=== PATIENT | female | born 1945 | race Caucasian/White ===

== ENCOUNTER → 2017-11-20 | Outpatient (CLI) | payer MEDICARE, OTHER ==
[~2017-11-20] MED LIST: BENZ200C15 PO; BISA-229 PO; BLOOD PRESSURE; CEPH-13 PO; CHOL500050 PO; CITA-139 PO; CYCL-332 PO; DOCU-416 PO; ESC10 PO; ESCI10TA8 PO; ESCI20TA38 PO; FERR-53 PO; FLU45SYR25 IM ONLY; FLU60SYR30 IM ONLY; LACT1CAP6 PO; LIS20 PO; LOR5 PO; LOSA50TA72 PO; NITR-1 PO; OMEP-125 PO; OMEP40CA48 PO; PAR20 PO; PIRF801T; PNEI IJ; PNEU0.5D3 IM; PRED20TA6 PO; TRIA15CR40 TP
== END ==
LOC: LAB 11:31
PROVIDERS: ATTEND Internal Medicine
DX: J84.112 Idiopathic pulmonary fibrosis (principal)
CPT/HCPCS: 36415; 82040; 82247; 82248; 84075; 84155; 84450; 84460

== ENCOUNTER → 2017-12-01 | Outpatient (CLI) | payer MEDICARE, OTHER ==
[2017-12-01 15:59] LABS: PLATELET COUNT, AUTOMATED 151 K/uL (150-450)
== END ==
LOC: LAB 15:35
PROVIDERS: ATTEND Nurse Practitioner Family
DX: K29.70 Gastritis, unspecified, without bleeding (principal); D50.9 Iron deficiency anemia, unspecified; J84.9 Interstitial pulmonary disease, unspecified; Z79.899 Other long term (current) drug therapy
CPT/HCPCS: 36415; 82040; 82247; 82310; 82374; 82435; 82565; 82947; 84075; 84132; 84155; 84295; 84450; 84460; 84520; 85025

== ENCOUNTER → 2017-12-03 | Outpatient (CLI) | payer MEDICARE, OTHER | LOC: LAB 14:48 | PROVIDERS: ATTEND Nurse Practitioner Family | DX: D50.9 Iron deficiency anemia, unspecified (principal); D53.9 Nutritional anemia, unspecified | CPT/HCPCS: 36415; 82607; 82728; 82746; 83540; 83550 ==

== ENCOUNTER → 2018-01-27 | Outpatient (CLI) | payer MEDICARE, OTHER ==
[~2018-01-27] MED LIST changes: +ALPR-429 PO
[2018-01-27 17:02] LABS: PLATELET COUNT, AUTOMATED 210 K/uL (150-450)
== END ==
LOC: LAB 16:40
PROVIDERS: ATTEND Nurse Practitioner Primary Care
DX: M54.5 Low back pain (principal)
CPT/HCPCS: 36415; 81001; 82040; 82247; 82310; 82374; 82435; 82565; 82947; 84075; 84132; 84155; 84295; 84450; 84460; 84520; 85025

== ENCOUNTER → 2018-01-29 | Outpatient (CLI) | payer MEDICARE, OTHER ==
--- NOTE | 2018-01-29 19:45 | RADIOLOGY IMAGING REPORT ---
FACILITY: [facility] PATIENT NAME: Yolette Munson : 1945 MR: [id number] V: [id number] EXAM DATE: ORDERING PHYSICIAN: GLORIA MOSES TECHNOLOGIST: Location: [facility] [place] Patient: Yolette Munson : 1945 Visit/Account:[id number] Date of Sevice: 01/29/2018 Lumbar spine with obliques, 4 views. HISTORY: Low back pain. COMPARISON: Lateral chest radiograph 06/04/2017. The bones are osteopenic. A mild wedge deformity is present in the T11 vertebral body, new compared t o previous. Small endplate osteophytes, endplate sclerosis, and Schmorl's node, vacuum phenomenon, an d moderate loss of disc height are present at T12-L1. Small endplate osteophytes and mild loss of dis c height are present at all other lumbar and lower thoracic levels. The abdominal aorta and visceral arteries are calcified. The posterior elements are unremarkable. No pars defects are identified. Mild sclerosis is present along the sacroiliac joints. IMPRESSION: Osteopenia. Mild T11 compression fracture, new since 06/04/2017. Mild to moderate multilevel degenerative disc disease. Atherosclerosis. Report Dictated By: John Dunn MD at 01/29/2018 7:36 PM Report E-Signed By: John Dunn MD at 01/29/2018 7:41 PM WSN:[id number]
== END ==
LOC: RAD 15:23
PROVIDERS: ATTEND Nurse Practitioner Primary Care
DX: M54.5 Low back pain (principal); M48.54XA Collapsed vertebra, not elsewhere classified, thoracic region, initial encounter for fracture; M19.90 Unspecified osteoarthritis, unspecified site; I25.10 Atherosclerotic heart disease of native coronary artery without angina pectoris
CPT/HCPCS: 72120

== ENCOUNTER → 2018-02-02 | Outpatient (CLI) | payer MEDICARE, OTHER ==
--- NOTE | 2018-02-02 13:52 | RADIOLOGY IMAGING REPORT ---
FACILITY: [facility] PATIENT NAME: Yolette Munson : 1945 MR: [id number] V: [id number] EXAM DATE: ORDERING PHYSICIAN: CHANTE BORJA TECHNOLOGIST: Location: [facility] [place] Patient: Yolette Munson : 1945 Visit/Account:[id number] Date of Sevice: 02/02/2018 BONE MINERAL DENSITY HISTORY: Osteopenia COMPARISON: DEXA 04/24/2016 FINDINGS: LUMBAR SPINE: Bone mineral density (BMD) measured from L1-L4 correlates with a Z-score of -1.6 and a T-score of -3. 3 which is osteoporosis as defined by the World Health Organization. The corresponding risk of fract ure in the lumbar spine is 9X compared with a young adult reference population. This value has decre ased by 15.3% since the prior study. More than 5% change is considered significant. HIP: Bone mineral density (BMD) measured in the left total hip region correlates with a Z-score of -1.5 an d a T-score of -3.2 which is osteoporosis as defined by the World Health Organization. The correspon ding risk of fracture in the hip is 9X compared with a young adult reference population. This value has decreased by 17.7% since the prior study. More than 5% change is considered significant. Bone mineral density (BMD) measured in the left Femoral Neck region measures 0.610 g/cm2. IMPRESSION: 1. Lumbar spine: Osteoporosis. There has been significant decrease in the bone mineral density sin ce the previous exam. 2. Left Total Hip: Osteoporosis. There has been significant decrease in the bone mineral density s callie the previous exam. 3. Left Femoral Neck: Bone Mineral Density is 0.610 g/cm2. The next DEXA scan of this patient should include the following sites: L1-L4, left hip. FRAX? WHO Fracture Risk Assessment Tool link: <http://www.shef.ac.uk/FRAX/tool.jsp?locationValue=9> PLEASE NOTE: 1) The World Health Organization defines low BMD as follows: T-score Normal > -1 Osteopenia < -1 and > -2.5 Osteoporosis < -2.5 without fractures Established osteoporosis < -2.5 with fractures 2) In general, you may wish to consider: Diagnosis Treatment Follow-up DEXA Normal BMD Prevention 2-3 years Osteopenia Prevention/therapy 1-2 years Osteoporosis Therapy Yearly 3) Fracture risk estimated from the T-score is more accurate for vertebral fractures (often spontane ous) than for hip fractures. Report Dictated By: Danny Galindo DO at 02/02/2018 1:47 PM Report E-Signed By: Danny Galindo DO at 02/02/2018 1:49 PM WSN:[email or web address]
== END ==
LOC: RAD 06:54
PROVIDERS: ATTEND Emergency Medicine
DX: Z13.820 Encounter for screening for osteoporosis (principal); M81.0 Age-related osteoporosis without current pathological fracture; M85.80 Other specified disorders of bone density and structure, unspecified site; M48.54XA Collapsed vertebra, not elsewhere classified, thoracic region, initial encounter for fracture
CPT/HCPCS: 36415; 77080; 82306; 82310; 83970

== ENCOUNTER → 2018-02-09 | Outpatient (CLI) | payer MEDICARE, OTHER ==
--- NOTE | 2018-02-09 09:45 | RADIOLOGY IMAGING REPORT ---
FACILITY: [facility] PATIENT NAME: Yolette Munson : 1945 MR: [id number] V: [id number] EXAM DATE: ORDERING PHYSICIAN: CHANTE BORJA TECHNOLOGIST: Location: [facility] [place] Patient: Yolette Munson : 1945 Visit/Account:[id number] Date of Sevice: 02/09/2018 EXAMINATION: Limited abdomen ultrasound HISTORY: Elevated alkaline phosphatase COMPARISON: CT abdomen and pelvis 04/25/2016 FINDINGS: Pancreas: Pancreas head and body have uniform echogenicity and defined margins. Pancreas tail is ob scured by bowel gas. Liver: Liver visualization is limited due to subcostal location and bowel gas. The liver is small, with the right lobe measuring 8 cm length. Liver margins are smooth. The portal vein is patent with normal directional blood flow by duplex Doppler ultrasound. Bile ducts: Intrahepatic and extrahepatic bile ducts are normal caliber. Common bile duct measures 3 mm diameter in the carolina hepatis. Gallbladder:Gallbladder is normal size and wall thickness. Gallbladder contains no stones or sludge. Right Kidneys:Normal size with preserved parenchymal thickness and appropriate echogenicity. Right ki dney measures 9 cm length. Abdominal aorta and IVC:Abdominal aorta and IVC are normal caliber. Both are patent. Ascites: None IMPRESSION: 1. Small liver with limited ultrasound for stability due to subcostal location of the liver and ponec l gas. For this patient, the liver would be best assessed by CT or MR abdomen with IV contrast. 2. Negative study for gallstones and bile duct obstruction. Report Dictated By: Kadie Bar MD at 02/09/2018 9:36 AM Report E-Signed By: Kadie Bar MD at 02/09/2018 9:40 AM WSN:[id number]
== END ==
LOC: US 02:28
PROVIDERS: ATTEND Emergency Medicine
DX: R74.8 Abnormal levels of other serum enzymes (principal)
CPT/HCPCS: 36415; 76705; 82977

== ENCOUNTER → 2018-02-12 | Outpatient (CLI) | payer MEDICARE, OTHER ==
[~2018-02-12] MED LIST changes: +CALC3.7S10 NS; +IOPAMIDOL 76% 75 ML INFUS BTL 75 ML ONE
--- NOTE | 2018-02-12 13:28 | RADIOLOGY IMAGING REPORT ---
FACILITY: [facility] - [place] PATIENT NAME: Yolette Munson : 1945 MR: [id number] V: [id number] EXAM DATE: ORDERING PHYSICIAN: NELSY LAMBERT TECHNOLOGIST: Location: [facility] [place] Patient: Yolette Munson : 1945 Visit/Account:[id number] Date of Sevice: 02/12/2018 ABDOMEN/PELVIS W/WO CONTRAST HISTORY: elevated alk phos - not able to see on US TECHNIQUE: Axial images acquired through the abdomen/pelvis both with and without IV contrast.. Jose J nal and sagittal reformatting also performed. Dose Lowering Technique One of the following dose optimization techniques was utilized in the performance of this exam: Autom ated exposure control; adjustment of the mA and/or kV according to the patient's size; or use of an i terative reconstruction technique. Specific details can be referenced in the facility's radiology C T exam operational policy. CONTRAST: 75 mL Isovue-370 COMPARISON: April 25, 2016 FINDINGS: Visualized lung bases: Severe interstitial septal thickening again seen throughout the lower lung fi elds with peribronchial thickening. These changes have further advanced when compared to the prior s tudy there are moderate coronary artery vascular calcifications.. There is a 2.3 x 1.3 x 2 cm right infrahilar mass suspicious for lymph node not appreciated on the prior study. There also appears to be a 1.2 cm left hilar lymph node Hepatobiliary: Negative. Spleen: Negative. Adrenals: Negative. Pancreas: Negative. Kidneys ureters and bladder: Negative. Genitalia: Atrophic uterus. The endometrium appears thickened at 1.3 cm GI: There is a small hiatal hernia Vessels/spaces/nodes: There are mild to moderate vascular calcifications seen throughout the abdomin al aorta and branch vessels Bones/soft tissues: There are moderate spondylotic changes at T12-L1. There is a mild compression f racture of T11 not present previously there is a mixed sclerotic lucent region in the left iliac bone that appears stable Additional findings: None pertinent. IMPRESSION: There are severe interstitial and septal thickening throughout the lower lung grvoe with peribronchi al thickening. These changes have advanced when compared to the prior study. Incompletely imaged is what appears to be a right infrahilar mass and a left hilar lymph node. CT of the chest with contra st may be helpful for further evaluation . Atrophic uterus. Endometrium appears thickened for postmenopausal woman. Pelvic ultrasound recommen ded Small hiatal hernia. There is a mild compression fracture of T11 not present previously Report Dictated By: Vernell Lloyd MD at 02/12/2018 12:49 PM Report E-Signed By: Vernell Lloyd MD at 02/12/2018 1:22 PM WSN:[email or web address]
== END ==
LOC: CT 07:08
PROVIDERS: ATTEND Nurse Practitioner Family
DX: I25.10 Atherosclerotic heart disease of native coronary artery without angina pectoris (principal); R91.8 Other nonspecific abnormal finding of lung field; K44.9 Diaphragmatic hernia without obstruction or gangrene
CPT/HCPCS: 74178; Q9967

== ENCOUNTER 2018-02-19 13:11 | Outpatient (RCR) | payer MEDICARE, OTHER ==
[2017-12-11 14:03] VITALS: BP 119/76
[2017-12-11 15:28] LABS: PLATELET COUNT, AUTOMATED 255 K/uL (150-450)
--- NOTE | 2017-12-11 21:39 | ONCOLOGY CONSULTATION ---
EVENT DATE: December 11, 2017 REFERRING PHYSICIAN ERIC BardalesP-[place] REASON FOR THE CONSULTATION Evaluation and management of macrocytic anemia. HISTORY OF PRESENT ILLNESS Patient is a 72-year-old female who was diagnosed recently with iron deficiency anemia and the patient started iron supplementation, and she had actually GI workup done on July 22, 2017, and her duodenal biopsy showed diagnostic abnormality. Stomach biopsy showed mild chronic gastritis, negative for H. pylori, and ascending colon biopsy showed hyperplastic polyp, and rectal biopsy showed also hyperplastic polyp. Patient does not like the iron pills because it causes some GI disturbances. Her CBC showed white count 5.7, hemoglobin 9.7 , hematocrit 29, platelets 151,000 and MCV was high at 97.3. Her ESR is 45. She had a serum folate that was normal at 15.9, TSH 1.01, vitamin B12 was 353, ferritin was 14, TIBC 262, serum iron 43, creatinine was 0.7. PAST MEDICAL HISTORY 1. Idiopathic pulmonary fibrosis. 2. Psoriasis. 3. Anemia. PAST SURGICAL HISTORY Surgery for extraction of renal stones. FAMILY HISTORY Brother had lung cancer, paternal grandmother had colon cancer. SOCIAL HISTORY Patient is a with four children. She is a retired florist designer. She drinks alcohol rarely. Denies any abuse of tobacco or illicit drugs. CURRENT MEDICATIONS 1. Lexapro 20 mg daily. 2. Colace 100 mg twice daily. 3. Omeprazole 40 mg twice daily. ALLERGIES SULFA WHICH CAUSES SKIN RASH. REVIEW OF SYSTEMS CONSTITUTIONAL: She has some sweating sometimes. HEENT: Ears: No tinnitus or hearing problem. Nose: No nasal discharge or epistaxis. Throat: No sore throat or mouth ulcers. Eyes: No diplopia or visual changes. RESPIRATORY: She has cough and shortness of breath. CARDIOVASCULAR: No chest pain, orthopnea, or paroxysmal nocturnal dyspnea (PND) . No edema. No palpitations. GASTROINTESTINAL: She has occasional nausea and vomiting and alternating diarrhea and constipation. GENITOURINARY: No hematuria or dysuria. MUSCULOSKELETAL: No pain in the muscles, joints or bones. NEUROLOGICAL: No tingling or numbness in the hands or feet. No headaches or convulsions. HEMATOLOGIC/LYMPHATIC: She bruises easily. She is weak, tired and fatigued. SKIN: No skin rash or lumps. PSYCHIATRIC: No anxiety or depression. PHYSICAL EXAMINATION GENERAL: Looks stable. Well-developed, well-nourished, and in no acute distress. VITAL SIGNS: Blood pressure 119/76, pulse 94 per minute, respirations 16 per minute, temperature 97.2, pulse ox 93.1% on 3L oxygen. HEENT: Head: Atraumatic. No sinus tenderness to palpation. Eyes: No icterus or conjunctivitis. Mouth and throat: No oral thrush or mucositis. NECK: Supple. No cervical or supraclavicular lymphadenopathy. LUNGS: Clear to auscultation and percussion bilaterally. HEART: Regular rate and rhythm. No gallops, murmurs, clicks or rubs. ABDOMEN: Soft and lax. No tenderness. No hepatosplenomegaly. No masses. EXTREMITIES: No cyanosis, clubbing or edema. LYMPHATICS: No peripheral lymphadenopathy. NEUROLOGICAL: Conscious, alert and oriented times three. No focal motor or sensory deficits. PSYCHIATRIC: Mood and affect appear normal. SKIN: No skin rash, bruise or purpuric eruption. ASSESSMENT Macrocytic anemia in a patient with history of iron deficiency anemia on iron pills and gastrointestinal workup did not show a bleeding source. Her stomach biopsy showed mild chronic gastritis, while the duodenal biopsy was no diagnostic abnormality. She has two polyps from the rectum and ascending colon turned out to be hyperplastic polyp. Her GI workup was done on July 22, 2017. Given that her anemia currently is macrocytic I do not think iron deficiency is only the reason for her anemia and there may be other reasons for that. Her ferritin is 14 and for this reason I am planning to check her soluble transferrin receptor assay to see if she is still iron deficient or not. If that soluble transferrin receptor assay comes back high then I will treat her with Injectafer 750 mg intravenous infusion weekly for two weeks, as the patient cannot tolerate the oral iron pills. If the other tests which I will request including methylmalonic acid assay, red cell folate, serum protein electrophoresis, CBC, retic count and haptoglobin level all come back normal, then I will proceed with bone marrow aspiration biopsy to rule out the possibility of myelodysplastic syndrome. I explained that to the patient. Patient is agreeable with the plan of management. If the patient will prove to have B12 or folic acid deficiency then we will treat her for two months and we will repeat the testing after that, and if her anemia will not correct while her deficiency will correct then we will consider bone marrow aspiration biopsy at that time. PLAN 1. CBC, retic count. 2. Haptoglobin. 3. Methylmalonic acid assay. 4. Red cell folate. 5. Soluble transferrin receptor assay. 6. Serum protein electrophoresis. 7. Consider bone marrow aspiration biopsy. 8. Consider Injectafer if the soluble transferrin receptor assay comes back high. 9. Patient is to contact us for any new concerns or complaints. POLO
[2017-12-18 11:42] VITALS: BP 127/71
[2017-12-18] MEDS: LIDOCAINE/SOD BICARB 8.4% SYR ID PRN (12:48)
[2017-12-18] MEDS: NS(*) 0.9% 100 ML BAG 100 ML IVPB PRN ×2 (12:48→12:54)
--- NOTE | 2017-12-18 13:07 | ONC Progress Note - NP.Halsey ---
Patient History Date of Service Dec 18, 2017 Reason For Visit/HPI Patient is seen in the clinic today for evaluation of her macrocytic anemia. Patient previously consult it with Dr. Ibarra with a diagnosis of iron deficiency anemia. She currently remains on iron supplement 1 tablet daily. She reports that she has fatigue rating it an 8 out of 10. She denies any pain. Patient is currently on oxygen therapy per nasal cannula continuous infusion. He is seen in the clinic today with her son for evaluation of recommended labs. Hemoglobin is at 10.8, hematocrit is 32.6, platelet count is within normal limits at 255,000, white cell count is 6700. Soluble transferrin receptor is elevated at 6.8. Haptoglobin is within normal limits at 197, IgG is 1900, IgA 781 these are both elevated, IgM is 31. SPEP shows a monoclonal increase in the gamma region, JOHNNIE shows a polyclonal increase in IgG, and IgA and no monoclonal proteins appreciated. This information was reviewed with patient and son. In review of Dr. Ibarra's dictation, if the soluble transferrin receptor was elevated patient should be started on Injectofer 750mg weekly x 2 doses. Side effects and administration was reviewed with patient. She does report that she has chronic constipation. She is currently taking Colace stool softener once daily and has a bowel movement every 2-3 days typically. We did discuss the use of Senokot S in addition to the Colace taken on a daily basis and the dose could be increased as needed. Problem List (1) Anemia, iron deficiency Oncology History Patient is a 72-year-old female who was diagnosed recently with iron deficiency anemia and the patient started iron supplementation, and she had actually GI workup done on July 22, 2017, and her duodenal biopsy showed diagnostic abnormality. Stomach biopsy showed mild chronic gastritis, negative for H. pylori, and ascending colon biopsy showed hyperplastic polyp, and rectal biopsy showed also hyperplastic polyp. Patient does not like the iron pills because it causes some GI disturbances. Her CBC showed white count 5.7, hemoglobin 9.7 , hematocrit 29, platelets 151,000 and MCV was high at 97.3. Her ESR is 45. She had a serum folate that was normal at 15.9, TSH 1.01, vitamin B12 was 353, ferritin was 14, TIBC 262, serum iron 43, creatinine was 0.7. Medical History Family History: FH: HTN (hypertension) FATHER FH: alcoholism MOTHER Brother, , Age:33 Brother FH: congenital heart problem Brother FH: depression MOTHER FH: emphysema FATHER FH: heart attack FATHER Brother FH: stroke MOTHER Psychosocial History Social History Patient is a with four children. She is a retired hedge fund accountant. She drinks alcohol rarely. Denies any abuse of tobacco or illicit drugs. She currently lives with her son and he is the care provider Smoking History: No Smoking Status: Never Smoker Medications and Allergies Active Scripts Escitalopram Oxalate (LEXAPRO) 20 Mg Tablet, 1 TAB PO QDAY, #90 TAB 0 Refills Prov:NELSY LAMBERT APRN 12/17/17 Docusate Sodium (COLACE) 100 Mg Capsule, 1 CAP PO BID, #60 CAP 6 Refills TAKE WITH A FULL GLASS OF WATER Prov:CARMELA GRANDA MD 07/31/17 Omeprazole (OMEPRAZOLE) 40 Mg Capsule.dr, 1 CAP PO BIDAC, #60 CAP 3 Refills Take 1 capsule twice every day and wait 1/2 hour before eating. Prov:CARMELA GRANDA MD 07/22/17 Discontinued Reported Medications Pirfenidone (Esbriet) 801 Mg Tablet 06/01/17 Allergies: Coded Allergies: Sulfa (Sulfonamide Antibiotics) (Verified Allergy, Mild, 06/04/17) Review of System/Physical Exam Review of Systems All Systems Reviewed/Normal: Yes, Except as Noted Respiratory: Positive for Shortness of Breath (patient is on oxygen) Hematologic: Positive for Fatigue, Positive for Weakness Physical Exam Vital Signs Temperature: 97.2 Pulse: 93 BP Systolic: 127 BP Diastolic: 71 Respiratory Rate: 16 O2 SAT: 91 O2 Delivery: Height (inches) 63.00 Weight lb: 135 Weight oz: Weight Kg (Silver): Pain: 0 ECOG Score: 1 General: Stable, Well Developed, Well Nourished, Not In Acute Distress HEENT: No Trauma, No Mucositis Heart: Regular Rate, Regular Rhythm, No Gallops Psychiatric: Mood appears normal, Affect appears normal Skin: No Bruising Diagnostic Studies Diagnostic Studies Laboratory Laboratory Tests 12/11/17 15:01 12/15/17 10:18 Laboratory Tests 12/11/17 15:01: White Blood Count 6.7, Red Blood Count 3.34, Hemoglobin 10.8, Mean Corpuscular Volume 97.4, Mean Corpuscular Hemoglobin 32.4, Mean Corpuscular Hemoglobin Concent 33.3, Red Cell Distribution Width 16.0, Platelet Count 255, Mean Platelet Volume 7.5, Neutrophils (%) (Auto) 66.2, Lymphocytes (%) (Auto) 17.4, Monocytes (%) (Auto) 10.7, Eosinophils (%) (Auto) 4.7, Basophils (%) (Auto) 1.0 , Nucleated RBC Relative Count (auto) 0.1, Neutrophils # (Auto) 4.5, Lymphocytes # (Auto) 1.2, Monocytes # (Auto) 0.7, Eosinophils # (Auto) 0.3, Basophils # (Auto) 0.1, Nucleated RBC Absolute Count (auto) 0.01, Absolute Reticulocyte Count 0.1243, Percent Reticulocyte Count 3.69, Corrected Reticulocyte % 2.86, Haptoglobin 197, Soluble Transferrin Receptor 6.8, Protein Electrophoresis (T) 7.60, Albumin % (PEP) 3.06, Cqmze-1-Povhcnsap 0.36, Alpha-2- Globulins 1.00, Beta Globulins 1.05, Gamma Globulins (%) 2.13, Methylmalonic Acid 0.23, Immunoglobulin G 1900, Immunoglobulin A 781, Immunoglobulin M 31, JOHNNIE & Serum PEP Interpretation See note, Serum Immunofixation Johnnie done 12/15/17 10:18: Hematocrit 32.1, RBC Folate Hemolysate 819 Assessment and Plan Assessment & Plan Macrocytic anemia in a patient with history of iron deficiency anemia on ferrous sulfate 325 mg daily. Gastrointestinal workup did not show a bleeding source. Her stomach biopsy showed mild chronic gastritis, while the duodenal biopsy was no diagnostic abnormality. She has two polyps from the rectum and ascending colon turned out to be hyperplastic polyp. Her GI workup was done on July 22, 2017. Her ferritin was 14, soluble transferrin receptor assay was 6.8 indicating iron deficiency anemia. She will be treated with Injectafer 750 mg intravenous infusion weekly for two weeks. She does experience constipation with the oral iron supplement. Education regarding IV treatment was reviewed today. Education regarding constipation was reviewed. Patient is currently on Colace 1 tablet daily and will start Senokot S1 tablet daily and will increase if constipation continues. Methylmalonic acid assay was 0.23, red cell folate czo264, serum protein electrophoresis showed no monoclonal proteins. IgG IgA were both elevated, IgM was decreased. Patient may also have an underlying myelodysplastic syndrome. We will correct her iron deficiency anemia and have Dr. Ibarra review labs when he returns for further recommendation and review. PLAN 1. Injectofer 750mg IV today and next week 2. Return to clinic in 2 months with repeat iron studies, labeled transferrin receptor assay and ferritin level, CBC. 3. Dr. Ibarra to review monoclonal protein detection quantitation labs. 4. Senokot-S 1 tablet daily and increase as needed for constipation management I personally spent a total of 30 minutes. Of that 25 minutes was counseling/ coordination of patient's care. See my note above for details. Copies to: NELSY LAMBERT APRN-C [facility] [employer]-BC, ONC Dec 18, 2017 13:07
[2017-12-25 13:14] VITALS: BP 122/64
[2017-12-25] MEDS: LIDOCAINE/SOD BICARB 8.4% SYR ID PRN (13:32)
[2017-12-25] MEDS: NS(*) 0.9% 100 ML BAG 100 ML IVPB PRN (13:32)
[2017-12-25 14:56] VITALS: BP 146/70
[2018-02-15 14:51] VITALS: BP 146/70
[2018-02-15 15:10] LABS: PLATELET COUNT, AUTOMATED 185 K/uL (150-450)
[~2018-02-19] VITALS: Ht 160 cm; Wt 63.6 kg
[~2018-02-19 13:11] MED LIST changes: -CALC-93 PO; +DEXTROSE 5%(*) 100 ML BAG 100 ML IVPB PRN; +FERRIC CARBOXY 750 MG SDV IVP ONE; -IOPAMIDOL 76% 75 ML INFUS BTL 75 ML ONE
[2018-02-19 13:19] VITALS: BP 151/75
--- NOTE | 2018-02-19 17:20 | ONCOLOGY FOLLOW UP NOTE ---
EVENT DATE: February 19, 2018 DIAGNOSES 1. Macrocytic anemia. 2. Iron deficiency. CHIEF COMPLAINT Patient is here today for followup of her anemia. HEMATOLOGY HISTORY Patient is a 72-year-old female who was diagnosed recently with iron deficiency anemia and the patient started iron supplementation, and she had actually GI workup done on July 22, 2017, and her duodenal biopsy showed diagnostic abnormality. Stomach biopsy showed mild chronic gastritis, negative for H. pylori, and ascending colon biopsy showed hyperplastic polyp, and rectal biopsy showed also hyperplastic polyp. Patient does not like the iron pills because it causes some GI disturbances. Her CBC showed white count 5.7, hemoglobin 9.7 , hematocrit 29, platelets 151,000 and MCV was high at 97.3. Her ESR is 45. She had a serum folate that was normal at 15.9, TSH 1.01, vitamin B12 was 353, ferritin was 14, TIBC 262, serum iron 43, creatinine was 0.7. HISTORY OF PRESENT ILLNESS Patient is here today for followup of her anemia with iron deficiency. She is complaining of back pain due to recent vertebral fracture, seen by her primary care. She has some constipation. She bruises easily. PAST MEDICAL HISTORY 1. Idiopathic pulmonary fibrosis. 2. Psoriasis. 3. Anemia. PAST SURGICAL HISTORY Surgery for extraction of renal stones. FAMILY HISTORY Brother had lung cancer, paternal grandmother had colon cancer. SOCIAL HISTORY Patient is a with four children. She is a retired accounts receivable accountant. She drinks alcohol rarely. Denies any abuse of tobacco or illicit drugs. CURRENT MEDICATIONS 1. Lexapro 20 mg daily. 2. Colace 100 mg twice daily. 3. Omeprazole 40 mg twice daily. ALLERGIES SULFA which causes skin rash. REVIEW OF SYSTEMS CONSTITUTIONAL: She has some sweating sometimes. HEENT: Ears: No tinnitus or hearing problem. Nose: No nasal discharge or epistaxis. Throat: No sore throat or mouth ulcers. Eyes: No diplopia or visual changes. RESPIRATORY: She has cough and shortness of breath. CARDIOVASCULAR: No chest pain, orthopnea, or paroxysmal nocturnal dyspnea (PND) . No edema. No palpitations. GASTROINTESTINAL: Patient has constipation. GENITOURINARY: No hematuria or dysuria. MUSCULOSKELETAL: She has back pain from recent vertebral fracture. NEUROLOGICAL: No tingling or numbness in the hands or feet. No headaches or convulsions. HEMATOLOGIC/LYMPHATIC: She bruises easily. SKIN: No skin rash or lumps. PSYCHIATRIC: No anxiety or depression. PHYSICAL EXAMINATION GENERAL: Looks stable. Well-developed, well-nourished, and in no acute distress. VITAL SIGNS: Blood pressure 151/75, pulse 74 per minute, respirations 16 per minute, temperature 97.7, pulse ox 95% on 3L oxygen. HEENT: Head: Atraumatic. No sinus tenderness to palpation. Eyes: No icterus or conjunctivitis. Mouth and throat: No oral thrush or mucositis. NECK: Supple. No cervical or supraclavicular lymphadenopathy. LUNGS: Clear to auscultation and percussion bilaterally. HEART: Regular rate and rhythm. No gallops, murmurs, clicks or rubs. ABDOMEN: Soft and lax. No tenderness. No hepatosplenomegaly. No masses. EXTREMITIES: No cyanosis, clubbing or edema. LYMPHATICS: No peripheral lymphadenopathy. NEUROLOGICAL: Conscious, alert and oriented times three. No focal motor or sensory deficits. PSYCHIATRIC: Mood and affect appear normal. SKIN: No skin rash, bruise or purpuric eruption. DIAGNOSTIC DATA CBC shows a white count of 7000, hemoglobin 12.3, hematocrit 36.1, platelets 185 ,000. Serum iron 57, TIBC 217, iron saturation 26.3%, ferritin 204, soluble transferrin receptor assay 4.9 which is down from 6.8. ASSESSMENT Macrocytic anemia with iron deficiency. Patient did not respond to oral iron pills. Her GI workup came back negative. Stomach biopsy showed mild chronic gastritis, while the duodenal biopsy was without any diagnostic abnormality. She had a polyp from the rectum and the ascending colon that turned out to be hyperplastic polyp. She had her GI workup was done on July 22, 2017. Patient was found to have low iron studies with ferritin 14. She received Injectafer infusions, two infusions with one week apart, and her hemoglobin improved from 9.7 and currently 12.3. Her iron studies normalized. Her ferritin was 14 and currently it is 204. Soluble transferrin receptor assay was 6.8, and currently 4.9. I am planning to monitor her CBC in the future. I will see her in three months with CBC and iron studies with ferritin at that time. PLAN 1. Continue followup. 2. Patient to return in three months with CBC, iron studies with ferritin. 3. Patient is to contact us for any new concerns or complaints. POLO
[2018-02-22] MEDS ORDERED: CALC-93 PO (06:09)
== END 2018-03-10 ==
LOC: ONC 13:11
PROVIDERS: ATTEND Internal Medicine Hematology
DX: D50.9 Iron deficiency anemia, unspecified (principal); K29.50 Unspecified chronic gastritis without bleeding; K59.00 Constipation, unspecified; Z79.899 Other long term (current) drug therapy; R05 Cough; R06.02 Shortness of breath
CPT/HCPCS: 36415; 71270; 82728; 82747; 83010; 83540; 83550; 83921; 84238; 85025; 85045; 86334; 96365; G0463; J1439; J7050; Q9967; 99202; 99212

== ENCOUNTER → 2018-02-19 | Outpatient (CLI) | payer MEDICARE, OTHER ==
[~2018-02-19] MED LIST changes: +CALC-93 PO; +CELE100C79 PO; +HYDR-385 PO
--- NOTE | 2018-02-19 13:57 | RADIOLOGY IMAGING REPORT ---
FACILITY: [facility] PATIENT NAME: Yolette Munson : 1945 MR: [id number] V: [id number] EXAM DATE: ORDERING PHYSICIAN: NELSY LAMBERT TECHNOLOGIST: Location: Patient: Yolette Munson : 1945 Visit/Account:[id number] Date of Sevice: 02/19/2018 CHEST W W/O CONTRAST History: lung mass ADDITIONAL CLINICAL HISTORY: None TECHNIQUE: Contiguous axial images were performed through the chest to the level of the adrenal gla nds with and without IV contrast. Coronal and sagittal reformatting was also performed. Dose Loweri ng Technique One of the following dose optimization techniques was utilized in the performance of this exam: Autom ated exposure control; adjustment of the mA and/or kV according to the patient's size; or use of an i terative reconstruction technique. Specific details can be referenced in the facility's radiology C T exam operational policy. Contrast: 75 mL Isovue-370 COMPARISON STUDIES: CT chest October 10, [address] abdomen pelvis February 12, 2018. Lungs / Pleura: Extensive peripheral honeycombing throughout the lungs has further advanced when co mpared to the prior study. Also increased is the coarse septal thickening. Mediastinum/nodes: The previously noted 1.1 x 1.6 and meter pretracheal lymph node appears unchanged . The previous 1.3 x 0.9 cm AP window lymph node also appears unchanged The prevascular space subcentimeter lymph node is unchanged There is a left hilar lymph node measuring 1.7 x 1.1 cm was not appreciated on the prior study. Ther e is a left infrahilar lymph node measuring 1.6 x 1.1 cm also not appreciated on the prior study. There is a right infrahilar lymph node measuring 2.3 x 1.4 x 1.8 cm that appears relatively unchanged Heart and vessels: Coronary artery vascular calcifications are again seen Musculoskeletal / Body wall: No aggressive appearing bone lesions are seen. Upper abdomen: There is a small hiatal hernia. IMPRESSION: Is extensive peripheral honeycombing throughout the lungs and septal thickening which is increased wh en compared to the prior CT the chest of October 10, 2016 The mediastinal and bilateral hilar adenopathy appears relatively unchanged other than note of two le ft hilar lymph nodes not appreciated on the prior study. This could be related to limited due to the nature of the prior examination due to lack of intravenous contrast. Small hiatal hernia Report Dictated By: Vernell Lloyd MD at 02/19/2018 1:34 PM Report E-Signed By: Vernell Lloyd MD at 02/19/2018 1:52 PM WSN:[email or web address]
== END ==
LOC: CT 12:31
PROVIDERS: ATTEND Nurse Practitioner Family
DX: R91.8 Other nonspecific abnormal finding of lung field (principal); R59.0 Localized enlarged lymph nodes; I25.10 Atherosclerotic heart disease of native coronary artery without angina pectoris; K44.9 Diaphragmatic hernia without obstruction or gangrene
CPT/HCPCS: 71270; Q9967

== ENCOUNTER → 2018-03-26 | Outpatient (CLI) | payer MEDICARE, OTHER ==
[~2018-03-26] MED LIST changes: +CALC-93 PO; -CITA-139 PO; +CITA-145 PO; -DEXTROSE 5%(*) 100 ML BAG 100 ML IVPB PRN; -FERRIC CARBOXY 750 MG SDV IVP ONE
== END ==
LOC: RESP 01:38
PROVIDERS: ATTEND Internal Medicine
DX: Z02.9 Encounter for administrative examinations, unspecified (principal)

== ENCOUNTER 2018-08-13 09:12 | Outpatient (RCR) | payer MEDICARE, OTHER ==
[2018-06-09 15:43] LABS: PLATELET COUNT, AUTOMATED 202 K/uL (150-450)
[2018-06-10 11:04] VITALS: BP 111/66
--- NOTE | 2018-06-10 17:16 | ONCOLOGY FOLLOW UP NOTE ---
EVENT DATE: June 10, 2018 DIAGNOSES 1. Macrocytic anemia. 2. Iron deficiency. CHIEF COMPLAINT Patient is here today for followup of her anemia. HEMATOLOGY HISTORY Patient is a 73-year-old female who was diagnosed recently with iron deficiency anemia and the patient started iron supplementation, and she had actually GI workup done on July 22, 2017, and her duodenal biopsy showed diagnostic abnormality. Stomach biopsy showed mild chronic gastritis, negative for H. pylori, and ascending colon biopsy showed hyperplastic polyp, and rectal biopsy showed also hyperplastic polyp. Patient does not like the iron pills because it causes some GI disturbances. Her CBC showed white count 5.7, hemoglobin 9.7 , hematocrit 29, platelets 151,000 and MCV was high at 97.3. Her ESR is 45. She had a serum folate that was normal at 15.9, TSH 1.01, vitamin B12 was 353, ferritin was 14, TIBC 262, serum iron 43, creatinine was 0.7. HISTORY OF PRESENT ILLNESS Patient is here today for followup of her anemia with iron deficiency in the past. She is complaining of dry cough and shortness of breath. She has pain in her right shoulder. She bruises easily. She is weak, tired and fatigued. PAST MEDICAL HISTORY 1. Idiopathic pulmonary fibrosis. 2. Psoriasis. 3. Anemia. PAST SURGICAL HISTORY Surgery for extraction of renal stones. FAMILY HISTORY Brother had lung cancer, paternal grandmother had colon cancer. SOCIAL HISTORY Patient is a with four children. She is a retired logistics center manager. She drinks alcohol rarely. Denies any abuse of tobacco or illicit drugs. CURRENT MEDICATIONS 1. Lexapro 20 mg daily. 2. Colace 100 mg twice daily. 3. Omeprazole 40 mg twice daily. ALLERGIES SULFA which causes skin rash. REVIEW OF SYSTEMS CONSTITUTIONAL: No appetite or weight change. No fever, chills or sweating. No recent infection. HEENT: Ears: No tinnitus or hearing problem. Nose: No nasal discharge or epistaxis. Throat: No sore throat or mouth ulcers. Eyes: No diplopia or visual changes. RESPIRATORY: She has dry cough and shortness of breath. CARDIOVASCULAR: No chest pain, orthopnea, or paroxysmal nocturnal dyspnea (PND) . No edema. No palpitations. GASTROINTESTINAL: No nausea or vomiting. No diarrhea or constipation. No change in bowel movements. No heartburn or swallowing difficulties. No abdominal pain. No jaundice. No hematemesis, melena or rectal bleeding. GENITOURINARY: No hematuria or dysuria. MUSCULOSKELETAL: She has pain in the right shoulder. NEUROLOGICAL: No tingling or numbness in the hands or feet. No headaches or convulsions. HEMATOLOGIC/LYMPHATIC: She bruises easily. She is weak, tired and fatigued. SKIN: No skin rash or lumps. PSYCHIATRIC: No anxiety or depression. PHYSICAL EXAMINATION GENERAL: Looks stable. Well-developed, well-nourished, and in no acute distress. VITAL SIGNS: Blood pressure 111/66, pulse 100 per minute, respirations 16 per minute, temperature 96.9, pulse ox 93% on 4L oxygen. HEENT: Head: Atraumatic. No sinus tenderness to palpation. Eyes: No icterus or conjunctivitis. Mouth and throat: No oral thrush or mucositis. NECK: Supple. No cervical or supraclavicular lymphadenopathy. LUNGS: Clear to auscultation and percussion bilaterally. HEART: Regular rate and rhythm. No gallops, murmurs, clicks or rubs. ABDOMEN: Soft and lax. No tenderness. No hepatosplenomegaly. No masses. EXTREMITIES: No cyanosis, clubbing or edema. LYMPHATICS: No peripheral lymphadenopathy. NEUROLOGICAL: Conscious, alert and oriented times three. No focal motor or sensory deficits. PSYCHIATRIC: Mood and affect appear normal. SKIN: No skin rash, bruise or purpuric eruption. DIAGNOSTIC DATA CBC shows a white count of 6.8, hemoglobin 12.4, hematocrit 36.1, platelets 202, 000. Serum iron 55, TIBC 242, iron saturation 22.7% and ferritin is 41, which is down from 204. ASSESSMENT Anemia with iron deficiency. Patient did not respond to oral iron pills. Her GI workup came back negative. Stomach biopsy showed mild chronic gastritis, while the duodenal biopsy was without any diagnostic abnormality. She had a polyp from the rectum and the ascending colon that turned out to be hyperplastic polyp. She had her GI workup done July 22, 2017. Patient at that time was found to have low ferritin at 14. She received Injectafer infusions, two infusions with one week apart, and her hemoglobin improved from 9.7 to 12.3. Her current hemoglobin is stable at 12.4, despite the fact her ferritin dropped from 204 and currently 41. I am planning to see her again in two months this time with CBC and iron studies with ferritin, and if she develops iron deficiency again I am planning to refer her back to the airplane engineer for capsule endoscopy, and I will treat her with Injectafer as we did last time with improvement. I explained that to the patient. She is agreeable with the plan of management. PLAN 1. Continue followup. 2. Patient to return in two months with CBC, iron studies with ferritin. 3. Patient is to contact us for any new concerns or complaints. POLO
[~2018-08-13 09:12] MED LIST changes: +ALEN70TA43 PO; -LOSA50TA72 PO; +LOSA50TA74 PO
[2018-08-13 09:23] VITALS: BP 108/74
[2018-08-13 09:43] LABS: PLATELET COUNT, AUTOMATED 183 K/uL (150-450)
[2018-08-13] MEDS ORDERED: INFLUENZA VIRUS VAC 0.5ML SYR IM ONLY ONE (09:50)
--- NOTE | 2018-08-13 21:44 | ONCOLOGY FOLLOW UP NOTE ---
EVENT DATE: August 13, 2018 DIAGNOSES 1. Macrocytic anemia. 2. Iron deficiency. CHIEF COMPLAINT Patient is here today for followup of her anemia. HEMATOLOGY HISTORY Patient is a 73-year-old female who was diagnosed recently with iron deficiency anemia, and the patient started iron supplementation. She had actually GI workup done on July 22, 2017, and her duodenal biopsy showed diagnostic abnormality. Stomach biopsy showed mild chronic gastritis, negative for H. pylori. Ascending colon biopsy showed hyperplastic polyp, and rectal biopsy showed also hyperplastic polyp. Patient does not like the iron pills because it causes some GI disturbances. Her CBC showed white count 5.7, hemoglobin 9.7, hematocrit 29, platelets 151,000, and MCV was high at 97.3. Her ESR is 45. She had a serum folate that was normal at 15.9, TSH 1.01, vitamin B12 was 353, ferritin was 14, TIBC 262, serum iron 43, creatinine was 0.7. HISTORY OF PRESENT ILLNESS Patient is here today for followup of her anemia. She is complaining of runny nose from her oxygen use. She bruises easily. She is also weak, tired, and fatigued all the time. PAST MEDICAL HISTORY 1. Idiopathic pulmonary fibrosis. 2. Psoriasis. 3. Anemia. PAST SURGICAL HISTORY Surgery for extraction of renal stones. FAMILY HISTORY Brother had lung cancer, paternal grandmother had colon cancer. SOCIAL HISTORY Patient is a with four children. She is a retired bank accountant. She drinks alcohol rarely. Denies any abuse of tobacco or illicit drugs. CURRENT MEDICATIONS 1. Lexapro 20 mg daily. 2. Colace 100 mg twice daily. 3. Omeprazole 40 mg twice daily. ALLERGIES SULFA which causes skin rash. REVIEW OF SYSTEMS CONSTITUTIONAL: No appetite or weight change. No fever, chills, or sweating. No recent infection. HEENT: Ears: No tinnitus or hearing problem. Nose: She has a runny nose. Throat: No sore throat or mouth ulcers. Eyes: No diplopia or visual changes. RESPIRATORY: She has dry cough and shortness of breath. CARDIOVASCULAR: No chest pain, orthopnea, or paroxysmal nocturnal dyspnea (PND). No edema. No palpitations. GASTROINTESTINAL: No nausea or vomiting. No diarrhea or constipation. No change in bowel movements. No heartburn or swallowing difficulties. No abdominal pain. No jaundice. No hematemesis, melena, or rectal bleeding. GENITOURINARY: No hematuria or dysuria. MUSCULOSKELETAL: She has pain in the right shoulder. NEUROLOGICAL: No tingling or numbness in the hands or feet. No headaches or convulsions. HEMATOLOGIC/LYMPHATIC: She bruises easily. She is weak, tired, and fatigued. SKIN: No skin rash or lumps. PSYCHIATRIC: No anxiety or depression. PHYSICAL EXAMINATION GENERAL: Looks stable. Well developed, well nourished, and in no acute distress. VITAL SIGNS: Blood pressure 108/74, pulse 93 per minute, respirations 16 per minute, temperature 98.6, pulse ox 91% on 4L oxygen. HEENT: Head: Atraumatic. No sinus tenderness to palpation. Eyes: No icterus or conjunctivitis. Mouth and throat: No oral thrush or mucositis. NECK: Supple. No cervical or supraclavicular lymphadenopathy. LUNGS: Clear to auscultation and percussion bilaterally. HEART: Regular rate and rhythm. No gallops, murmurs, clicks, or rubs. ABDOMEN: Soft and lax. No tenderness. No hepatosplenomegaly. No masses. EXTREMITIES: No cyanosis, clubbing, or edema. LYMPHATICS: No peripheral lymphadenopathy. NEUROLOGICAL: Conscious, alert, and oriented times three. No focal motor or sensory deficits. PSYCHIATRIC: Mood and affect appear normal. SKIN: No skin rash, bruise, or purpuric eruption. DIAGNOSTIC DATA CBC shows white count 6.6, hemoglobin 12.2, hematocrit 37.4, platelets 183,000. Iron studies are pending. ASSESSMENT Anemia with iron deficiency. Patient did not respond to oral iron pills. Her gastrointestinal workup came back negative. Stomach biopsy showed mild chronic gastritis, while the duodenal biopsy was without any diagnostic abnormality. She had a polyp from the rectum and ascending colon that turned out to be hyperplastic polyps. She had her gastrointestinal workup done July 22, 2017. Patient at that time had a low ferritin at 14. She received Injectafer infusions 750 mg weekly for two weeks, and her hemoglobin improved from 9.7 to 12.3. Her current hemoglobin is stable at 12.2, but her iron studies are still pending. Last visit, her ferritin dropped from 204 to 41, and if she develops iron deficiency again, I am planning to treat her with Injectafer like the last time. I am planning to see her in three months with CBC, chemistry panel, iron studies with ferritin this time. PLAN 1. Continue followup. 2. Patient to return in three months with CBC, chem panel, iron studies with ferritin. 3. Patient is to contact us for any new concerns or complaints. MTDD
== END 2018-09-07 ==
LOC: SPU 09:12
PROVIDERS: ATTEND Internal Medicine Hematology
DX: D50.9 Iron deficiency anemia, unspecified (principal); K29.50 Unspecified chronic gastritis without bleeding; Z79.899 Other long term (current) drug therapy; R05 Cough; R06.02 Shortness of breath; R53.1 Weakness; R53.83 Other fatigue; Z23 Encounter for immunization
CPT/HCPCS: 36415; 82728; 83540; 83550; 85025; 90471; G0463; Q2037; 90674; 99212

== ENCOUNTER 2018-11-18 10:00 | Outpatient (RCR) | payer MEDICARE, OTHER ==
[~2018-11-18 10:00] MED LIST changes: -LOSA50TA74 PO; +LOSA50TA80 PO
[2018-11-18 10:24] VITALS: BP 119/58
[2018-11-18 11:01] LABS: PLATELET COUNT, AUTOMATED 172 K/uL (150-450)
--- NOTE | 2018-11-18 16:07 | [facility] ONCOLOGY NOTE ---
EVENT DATE: November 18, 2018 DIAGNOSES 1. Macrocytic anemia. 2. Iron deficiency. CHIEF COMPLAINT Patient is here today for followup of her anemia. HEMATOLOGY HISTORY Patient is a 73-year-old female who was diagnosed recently with iron deficiency anemia, and the patient started iron supplementation. She had actually GI workup done on July 22, 2017, and her duodenal biopsy showed diagnostic abnormality. Stomach biopsy showed mild chronic gastritis, negative for H. pylori. Ascending colon biopsy showed hyperplastic polyp, and rectal biopsy showed also hyperplastic polyp. Patient does not like the iron pills because it causes some GI disturbances. Her CBC showed white count 5.7, hemoglobin 9.7, hematocrit 29, platelets 151,000, and MCV was high at 97.3. Her ESR is 45. She had a serum folate that was normal at 15.9, TSH 1.01, vitamin B12 was 353, ferritin was 14, TIBC 262, serum iron 43, creatinine was 0.7. HISTORY OF PRESENT ILLNESS Patient is here today for followup of her anemia. She is complaining of some cough with phlegm. She is always weak, tired, and fatigued. PAST MEDICAL HISTORY 1. Idiopathic pulmonary fibrosis. 2. Psoriasis. 3. Anemia. PAST SURGICAL HISTORY Surgery for extraction of renal stones. FAMILY HISTORY Brother had lung cancer, paternal grandmother had colon cancer. SOCIAL HISTORY Patient is a with four children. She is a retired consolidation accountant. She drinks alcohol rarely. Denies any abuse of tobacco or illicit drugs. CURRENT MEDICATIONS 1. Lexapro 20 mg daily. 2. Colace 100 mg twice daily. 3. Omeprazole 40 mg twice daily. ALLERGIES SULFA which causes skin rash. REVIEW OF SYSTEMS CONSTITUTIONAL: No appetite or weight change. No fever, chills, or sweating. No recent infection. HEENT: Ears: No tinnitus or hearing problem. Nose: No nasal discharge or epistaxis. Throat: No sore throat or mouth ulcers. Eyes: No diplopia or visual changes. RESPIRATORY: No shortness of breath. She has cough with expectoration. No hemoptysis. CARDIOVASCULAR: No chest pain, orthopnea, or paroxysmal nocturnal dyspnea (PND). No edema. No palpitations. GASTROINTESTINAL: No nausea or vomiting. No diarrhea or constipation. No change in bowel movements. No heartburn or swallowing difficulties. No abdominal pain. No jaundice. No hematemesis, melena, or rectal bleeding. GENITOURINARY: No hematuria or dysuria. MUSCULOSKELETAL: No pain in the muscles, joints, or bones. NEUROLOGICAL: No tingling or numbness in the hands or feet. No headaches or convulsions. HEMATOLOGIC/LYMPHATIC: No bleeding or easy bruising. She is weak, tired, and fatigued. No enlarged lymph nodes. SKIN: No skin rash or lumps. PSYCHIATRIC: No anxiety or depression. PHYSICAL EXAMINATION GENERAL: Looks stable. Well developed, well nourished, and in no acute distress. VITAL SIGNS: Blood pressure 119/58, pulse 99 per minute, respirations 16 per minute, temperature 99.3, pulse ox 93 % on 4L oxygen. HEENT: Head: Atraumatic. No sinus tenderness to palpation. Eyes: No icterus or conjunctivitis. Mouth and throat: No oral thrush or mucositis. NECK: Supple. No cervical or supraclavicular lymphadenopathy. LUNGS: Clear to auscultation and percussion bilaterally. HEART: Regular rate and rhythm. No gallops, murmurs, clicks, or rubs. ABDOMEN: Soft and lax. No tenderness. No hepatosplenomegaly. No masses. EXTREMITIES: No cyanosis, clubbing, or edema. LYMPHATICS: No peripheral lymphadenopathy. NEUROLOGICAL: Conscious, alert, and oriented times three. No focal motor or sensory deficits. PSYCHIATRIC: Mood and affect appear normal. SKIN: No skin rash, bruise, or purpuric eruption. DIAGNOSTIC DATA CBC shows white count 4.8, hemoglobin 9.7, hematocrit 30.1, platelets 172,000, MCV 93.8. Serum iron 46, TIBC 295, iron saturation 15.6%, ferritin is pending. ASSESSMENT Anemia with iron deficiency. Patient did not respond to oral iron pills. Her gastrointestinal workup came back negative. Stomach biopsy showed mild chronic gastritis, while the duodenal biopsy was without any diagnostic abnormality. She had polyps from the rectum and ascending colon that turned out to be hyperplastic polyps. She had a gastrointestinal workup done July 22, 2017. At that time, her ferritin was low at 14. She received Injectafer infusions 750 mg weekly for two weeks, and her hemoglobin improved from 9.7 to 12.3. Her last visit, her hemoglobin remained stable at 12.2, but her ferritin dropped from 204 to 41, and her ferritin today is pending. If the ferritin continues to drop, I am planning to give her Injectafer again at 750 mg intravenously weekly for two weeks. I will see her in three months from now with CBC and iron studies with ferritin. PLAN 1. Continue followup. 2. Patient to return in three months with CBC and iron studies with ferritin. 3. Consider Injectafer 750 mg intravenously weekly for two weeks if her ferritin continues to drop. 4. Patient is to contact us for any new concerns or complaints. MTDD
== END 2018-12-06 15:48 | disposition home or self-care (01) ==
LOC: SPU 10:00
PROVIDERS: ATTEND Internal Medicine Hematology
DX: D50.9 Iron deficiency anemia, unspecified (principal); K29.50 Unspecified chronic gastritis without bleeding; Z79.899 Other long term (current) drug therapy; R05 Cough; R06.02 Shortness of breath; R53.1 Weakness; R53.83 Other fatigue; Z23 Encounter for immunization
CPT/HCPCS: 36415; 82728; 83540; 83550; 85025; G0463; 99212

== ENCOUNTER → 2018-11-27 | Outpatient (CLI) | payer MEDICARE, OTHER | LOC: LAB 13:07 | PROVIDERS: ATTEND Internal Medicine Hematology | DX: D50.9 Iron deficiency anemia, unspecified (principal) | CPT/HCPCS: 36415; 84238 ==

== ENCOUNTER 2018-12-11 17:43 | Emergency (ER) | payer MEDICARE, OTHER ==
--- NOTE | 2018-12-11 18:16 | ER Report ---
History and Physical Time Seen By MD: 18:16 Hx. of Stated Complaint: Pt. here from home, has had no appetite and more weak than baseline. Pt. has IPF is on 3L of O2 baseline, and 6L with activity. Pale appearing off of baseline, per caregiver and daugther. HPI/ROS CHIEF COMPLAINT: weakness, fatigue, pallor, nausea HISTORY OF PRESENT ILLNESS: This is a 73 year old female. She has had symptoms for a week now of worsening fatigue and weakness. Difficulty getting up and around. Poor appetite and drinking less fluids and feeling dehydrated. She has been urinating less, but having some incontinence. No dysuria, but darker urine. She has IPF and is on 3-4 liters of oxygen chronically, and is not more short of breath at rest, somewhat with exertion. Has mild chronic cough, unchanged. No chest pain. Having abdominal discomfort, but no focal pain. Stools have been darker in color and tarry this week. No history of GI bleeding, has had low H/H in the past and workup with scopes did not reveal a GI bleed. Sees Dr. Moyer, Heme/Onc, for workup for a microcytic anemia, possible anemia of chronic disease. REVIEW OF SYSTEMS: Constitutional: No fever or chills. Eyes: No vision changes. ENT: No sore throat. No congestion. Cardiovascular: No chest pain. Respiratory: As above. Gastrointestinal: No abdominal pain. No nausea or vomiting. Genitourinary: No dysuria. No frequency Musculoskeletal: No musculoskeletal pain. Skin: No rashes. No bruising. Neurological: No numbness. No headache. Allergies: Coded Allergies: Sulfa (Sulfonamide Antibiotics) (Verified Allergy, Mild, 12/11/18) bacitracin (Verified Allergy, Mild, rash, 12/11/18) neomycin (Verified Allergy, Mild, rash, 12/11/18) polymyxin B (Verified Allergy, Mild, rash, 12/11/18) Home Meds Active Scripts Escitalopram Oxalate (LEXAPRO) 20 Mg Tablet, 1 TAB PO QDAY, #90 TAB 0 Refills Prov:NELSY LAMBERT APRNP-C 10/12/18 Alendronate Sodium (FOSAMAX) 70 Mg Tablet, 1 TAB PO QWK, #12 TAB 3 Refills Prov:NELSY LAMBERT APRN BOOTH MANAGER-C 06/09/18 Calcitonin,[place],Synthetic (CALCITONIN-SALMON) 3.7 Ml [place].pump, 1 SPRAY NS DAILY, #1 BOTTLE 1 Refill 1 spray to 1 nostril daily - alternate nostrils each day Prov:NELSY LAMBERT APRN BOOTH MANAGER-C 02/11/18 Reported Medications Calcium Carbonate/Vitamin D3 (Calcium 500-Vit D3 600 Tablet) 500 Mg-600 Tablet, 1 TAB PO BID 02/22/18 Discontinued Scripts Celecoxib (CELEBREX) 100 Mg Capsule, 1 CAP PO QDAY, #90 CAPSULE 0 Refills Take 2 tabs for the first dose then one daily thereafter Prov:NELSY LAMBERT APRN BOOTH MANAGER-C 02/19/18 Hydrocodone Bit/Acetaminophen (HYDROCODON-ACETAMINOPHEN 5-325) 1 Each Tablet, 0.5-1 EACH PO Q6H PRN for PAIN, #60 TAB 0 Refills Prov:NELSY LAMBERT APRN BOOTH MANAGER-C 02/19/18 Past Medical/Surgical History Anemia, Idiopathic Pulmonary Fibrosis, Osteopenia, arthritis, GERD, psoriasis, chronic constipation, depression, history of D&C Reviewed Nurses Notes: Yes Hx Smoking: No Smoking Status: Never Smoker Hx Alcohol Use: Yes Constitutional Vital Sign - Last 24 Hours 12/11/18 12/11/18 12/11/18 12/11/18 18:03 18:04 18:13 18:43 Pulse 113 100 100 B/P (MAP) 103/53 103/53 (70) Pulse Ox 92 96 93 O2 Delivery Nasal Cannula 12/11/18 12/11/18 12/11/18 12/11/18 19:13 19:41 19:46 20:00 Pulse 88 87 Resp 25 B/P (MAP) 103/57 (72) 103/55 (71) Pulse Ox 98 97 12/11/18 12/11/18 12/11/18 12/11/18 20:16 20:30 20:35 21:00 Pulse 87 88 Resp 17 16 B/P (MAP) 102/53 (69) 104/47 (66) Pulse Ox 96 94 12/11/18 12/11/18 12/11/18 21:05 21:30 21:35 Pulse 95 90 Resp 32 13 B/P (MAP) 105/54 (71) Pulse Ox 89 97 Intake and Output 12/11/18 12/11/18 12/12/18 15:00 23:00 07:00 Intake Total 1000 ml Balance 1000 ml Physical Exam General Appearance: The patient is alert. No acute distress. Eyes: Pupils are equal, round. No pallor, injection or icterus. ENT: Mucous membranes are very dry. Normal oral mucosa. Posterior oropharynx is normal. Normal tympanic membranes and canals. Neck: Supple and non tender. No lymphadenopathy. Respiratory: Lungs with coarse dry rales. No wheezing and good air movement. There are no retractions or accessory muscle use. Cardiovascular: Tachycardia, but with a regular rhythm. No murmurs, gallops or rubs. Normal capillary refill. Gastrointestinal: Abdomen is soft and non tender. Nondistended. Normal active bowel sounds. No costovertebral angle tenderness with percussion. Rectal: Dark stool, no blood. No pain. Neurological: Alert and oriented x3. No focal neurologic deficits. Generalized weakness. Some lightheaded with sitting up and standing. Skin: Warm and dry. No rashes. Musculoskeletal: No musculoskeletal pain. DIFFERENTIAL DIAGNOSIS: After history and physical exam, differential diagnosis was considered for nonspecific findings of weakness, fatigue, pallor and nausea, would look at acute coronary problem, infectious etiology, GI bleeding with her history of anemia in the past. Medical Decision Making Data Points Result Diagram: 12/11/18182312/11/181823 Laboratory Hematology Test 12/11/18 18:24 12/11/18 19:00 12/11/18 19:10 12/11/18 20:45 Red Blood Count 3.05 M/uL (4.17-5.56) Mean Corpuscular Volume 90.2 fL (80.0-96.0) Mean Corpuscular Hemoglobin 29.0 pg (26.0-33.0) Mean Corpuscular Hemoglobin Concent 32.1 g/dL (32.0-36.0) Red Cell Distribution Width 16.3 % (11.5-14.5) Mean Platelet Volume 8.4 fL (7.2-11.1) Neutrophils (%) (Auto) 81.0 % (39.4-72.5) Lymphocytes (%) (Auto) 6.4 % (17.6-49.6) Monocytes (%) (Auto) 11.9 % (4.1-12.4) Eosinophils (%) (Auto) 0.0 % (0.4-6.7) Basophils (%) (Auto) 0.7 % (0.3-1.4) Nucleated RBC Relative Count (auto) 0.0 /100WBC Neutrophils # (Auto) 9.8 K/uL (2.0-7.4) Lymphocytes # (Auto) 0.8 K/uL (1.3-3.6) Monocytes # (Auto) 1.4 K/uL (0.3-1.0) Eosinophils # (Auto) 0.0 K/uL (0.0-0.5) Basophils # (Auto) 0.1 K/uL (0.0-0.1) Nucleated RBC Absolute Count (auto) 0.00 K/uL Sodium Level 138 mmol/L (137-145) Potassium Level 3.5 mmol/L (3.5-5.0) Chloride Level 108 mmol/L (98-107) Carbon Dioxide Level 27 mmol/L (22-31) Blood Urea Nitrogen 17 mg/dl (7-18) Creatinine 0.70 mg/dl (0.52-1.04) Glomerular Filtration Rate Calc > 60.0 Random Glucose 140 mg/dl (75-110) Calcium Level 9.8 mg/dl (8.4-10.2) Total Bilirubin 0.6 mg/dl (0.2-1.3) Aspartate Amino Transf (AST/SGOT) 31 U/L (0-35) Alanine Aminotransferase (ALT/SGPT) 20 U/L (0-56) Alkaline Phosphatase 90 U/L (0-126) Total Protein 7.5 g/dl (6.3-8.2) Albumin 3.2 g/dl (3.5-5.0) Amylase Level 57 U/L (0-110) Lipase 63 U/L (23-300) Influenza Virus Type A (PCR) Negative (NEGATIVE) Influenza Virus Type B (PCR) Negative (NEGATIVE) Stool Occult Blood (IFOB) Negative (NEGATIVE) Troponin I < 0.012 ng/ml Chemistry Test 12/11/18 18:24 12/11/18 19:00 12/11/18 19:10 12/11/18 20:45 White Blood Count 12.1 k/uL (4.5-11.0) Red Blood Count 3.05 M/uL (4.17-5.56) Hemoglobin 8.8 g/dL (12.0-16.0) Hematocrit 27.5 % (34.0-47.0) Mean Corpuscular Volume 90.2 fL (80.0-96.0) Mean Corpuscular Hemoglobin 29.0 pg (26.0-33.0) Mean Corpuscular Hemoglobin Concent 32.1 g/dL (32.0-36.0) Red Cell Distribution Width 16.3 % (11.5-14.5) Platelet Count 210 K/uL (150-450) Mean Platelet Volume 8.4 fL (7.2-11.1) Neutrophils (%) (Auto) 81.0 % (39.4-72.5) Lymphocytes (%) (Auto) 6.4 % (17.6-49.6) Monocytes (%) (Auto) 11.9 % (4.1-12.4) Eosinophils (%) (Auto) 0.0 % (0.4-6.7) Basophils (%) (Auto) 0.7 % (0.3-1.4) Nucleated RBC Relative Count (auto) 0.0 /100WBC Neutrophils # (Auto) 9.8 K/uL (2.0-7.4) Lymphocytes # (Auto) 0.8 K/uL (1.3-3.6) Monocytes # (Auto) 1.4 K/uL (0.3-1.0) Eosinophils # (Auto) 0.0 K/uL (0.0-0.5) Basophils # (Auto) 0.1 K/uL (0.0-0.1) Nucleated RBC Absolute Count (auto) 0.00 K/uL Glomerular Filtration Rate Calc > 60.0 Calcium Level 9.8 mg/dl (8.4-10.2) Total Bilirubin 0.6 mg/dl (0.2-1.3) Aspartate Amino Transf (AST/SGOT) 31 U/L (0-35) Alanine Aminotransferase (ALT/SGPT) 20 U/L (0-56) Alkaline Phosphatase 90 U/L (0-126) Total Protein 7.5 g/dl (6.3-8.2) Albumin 3.2 g/dl (3.5-5.0) Amylase Level 57 U/L (0-110) Lipase 63 U/L (23-300) Influenza Virus Type A (PCR) Negative (NEGATIVE) Influenza Virus Type B (PCR) Negative (NEGATIVE) Stool Occult Blood (IFOB) Negative (NEGATIVE) Troponin I < 0.012 ng/ml EKG/Imaging EKG Interpretation 12 lead EKG: At 1839 hrs. Rhythm: Normal sinus rhythm, rate 98 [place]: normal QRS: normal ST segments: ST elevation in the inferior leads with associated Q waves. Q waves were present on old EKG but no elevation. No reciprocal changes 12 lead EKG: At 2033 hrs. Unchanged from previous Imaging Examination: ACUTE ABDOMEN SERIES 3 VIEW Comparison: 02/19/2018 and earlier. History: nausea, weakness Findings: Cardiac and hilar contour size is prominent but unchanged. Chronic lung disease with extensive interstitial reticular markings and peripheral fibrosis is redemonstrated and overall appears minimally changed since 06/04/2017. No definite new or enlarging consolidation or nodule. No pneumothorax or effusion. No pneumoperitoneum. Small bowel gas pattern is unremarkable. Moderate amount of stool predominantly within the right hemicolon. No suspicious soft tissue calcifications. Osseous structures appear demineralized. Mild degenerative change. IMPRESSION: 1. Chronic lung disease with no definite findings of acute cardiopulmonary disease. 2. Nonobstructive bowel gas pattern. 3. Moderate amount of stool in the right hemicolon. Report Dictated By: Be Matute MD at 12/11/2018 7:53 PM ED Course/Re-evaluation Clinical Indication for ER IV: Hydration, IV Access ED Course Initial evaluation, IV was started and labs obtained. Patient unable to give a urine sample because of her slight dehydration. A liter of normal saline given. EKG obtained which showed the ST elevations. Blood count came back showing anemia which is likely worse than the 8.8 hemoglobin that is listed because of her dehydration. Discussed the case with the patient and called Dr. Freedman, [facility], at [facility]. Discussed the case with him and given the lack of chest pain, negative troponin, no other symptoms and having been associated anemia with question of GI bleeding we'll hold off on any blood thinners at this time. Also spoke with Dr. Kay, hospitalist, who accepted the patient for transfer there. Repeat Troponin was negative; EKG with same ST elevations, unchanged. Patient remains stable and transported to [facility] for further care. Decision to Disposition Date: Dec 11, 2018 Decision to Disposition Time: 19:50 Depart Departure Latest Vital Signs Vital Signs Date Time Temp Pulse Resp B/P (MAP) Pulse Ox O2 Delivery O2 Flow Rate FiO2 12/11/18 21:35 90 13 97 12/11/18 21:30 105/54 (71) 12/11/18 18:03 Nasal Cannula Impression: Primary Impression: ST elevation Additional Impression: Anemia Condition: Condition Unchanged Disposition: XFER TO [facility] Referrals: NELSY LAMBERT APRN BOOTH MANAGER-C (PCP) Problem Qualifiers Additional Impression: Anemia Anemia type: unspecified type Qualified Codes: D64.9 - Anemia, unspecified JONAH LOPEZ MD Dec 11, 2018 18:16
[2018-12-11] MEDS ORDERED: NS(*) 0.9% 1000 ML BAG 1,000 ML IV ONE (18:40)
[2018-12-11 18:53] LABS: PLATELET COUNT, AUTOMATED 210 K/uL (150-450)
--- NOTE | 2018-12-11 20:01 | RADIOLOGY IMAGING REPORT ---
FACILITY: [facility] PATIENT NAME: Yolette Munson : 1945 MR: [id number] V: [id number] EXAM DATE: ORDERING PHYSICIAN: JONAH LOPEZ TECHNOLOGIST: Location: [facility] Patient: Yolette Munson : 1945 Visit/Account:[id number] Date of Sevice: 12/11/2018 Examination: ACUTE ABDOMEN SERIES 3 VIEW Comparison: 02/19/2018 and earlier. History: nausea, weakness Findings: Cardiac and hilar contour size is prominent but unchanged. Chronic lung disease with extens poly interstitial reticular markings and peripheral fibrosis is redemonstrated and overall appears min imally changed since 06/04/2017. No definite new or enlarging consolidation or nodule. No pneumothorax or effusion. No pneumoperitoneum. Small bowel gas pattern is unremarkable. Moderate amount of stool predominantly within the right hemicolon. No suspicious soft tissue calcifications. Osseous structures appear demineralized. Mild degenerative change. IMPRESSION: 1. Chronic lung disease with no definite findings of acute cardiopulmonary disease. 2. Nonobstructive bowel gas pattern. 3. Moderate amount of stool in the right hemicolon. Report Dictated By: Be Matute MD at 12/11/2018 7:53 PM Report E-Signed By: Be Matute MD at 12/11/2018 7:56 PM WSN:[id number]
[2018-12-11 21:30] VITALS: BP 105/54
--- NOTE | 2018-12-11 23:52 | EKG ---
FACILITY: [facility] [place] PATIENT NAME: EDGARD HASSAN : [id number] MR: [id number] V: [id number] EXAM DATE: ORDERING PHYSICIAN: JONAH LOPEZ TECHNOLOGIST: STEFNA Test Reason : NAUSEA WEAKNESS Blood Pressure : / mmHG Vent. Rate : 098 BPM Atrial Rate : 098 BPM P-R Int : 174 ms QRS Dur : 086 ms QT Int : 364 ms P-R-T Axes : 031 013 062 degrees QTc Int : [address] elevation II, III, AVF, V6 concerning for acute ischemia/infarct Abnormal ECG Confirmed by KATE FLORES ([id number]) on 12/12/2018 5:41:33 AM Referred By: Confirmed By:KATE FLORES
--- NOTE | 2018-12-11 23:53 | EKG ---
FACILITY: [facility] [place] PATIENT NAME: EDGARD HASSAN : [id number] MR: [id number] V: [id number] EXAM DATE: ORDERING PHYSICIAN: JONAH LOPEZ TECHNOLOGIST: STEFAN Test Reason : ACUTE NV Blood Pressure : / mmHG Vent. Rate : 088 BPM Atrial Rate : 088 BPM P-R Int : 188 ms QRS Dur : 086 ms QT Int : 386 ms P-R-T Axes : 051 021 052 degrees QTc Int : [address] elevation persists in the inferolateral leads Abnormal ECG When compared with ECG of 11-DEC-2018 18:39, No significant change was found Confirmed by KATE FLORES ([id number]) on 12/12/2018 5:42:29 AM Referred By: Confirmed By:KATE FLORES
== END 2018-12-11 22:11 | disposition short-term general hospital (02) ==
LOC: ER 18:22
DX: I21.3 ST elevation (STEMI) myocardial infarction of unspecified site (principal); D64.9 Anemia, unspecified; E86.0 Dehydration
CPT/HCPCS: 36415; 74022; 82150; 82274; 83690; 84484; 85025; 87502; 93005; 96360; 99285; J7030; 82040; 82247; 82310; 82374; 82435; 82565; 82947; 84075; 84132; 84155; 84295; 84450; 84460; 84520

== ENCOUNTER → 2018-12-11 | Outpatient (CLI) | payer MEDICARE, OTHER | LOC: AMB 21:56 | PROVIDERS: ATTEND Nurse Practitioner | DX: D64.9 Anemia, unspecified (principal); R53.83 Other fatigue; R11.0 Nausea | CPT/HCPCS: A0425; A0426; A0888 ==

== ENCOUNTER → 2018-12-27 | Outpatient (CLI) | payer MEDICARE, OTHER ==
[~2018-12-27] MED LIST changes: +PANT40TA65 PO
[2018-12-27 16:22] LABS: PLATELET COUNT, AUTOMATED 233 K/uL (150-450)
== END ==
LOC: LAB 15:45
PROVIDERS: ATTEND Nurse Practitioner Family
DX: D50.9 Iron deficiency anemia, unspecified (principal); K29.70 Gastritis, unspecified, without bleeding; Z79.899 Other long term (current) drug therapy
CPT/HCPCS: 36415; 82040; 82247; 82310; 82374; 82435; 82565; 82728; 82947; 83540; 83550; 84075; 84132; 84155; 84295; 84450; 84460; 84520; 85025

== ENCOUNTER → 2019-01-10 | Outpatient (CLI) | payer MEDICARE, OTHER ==
[2019-01-10 14:35] LABS: PLATELET COUNT, AUTOMATED 158 K/uL (150-450)
== END ==
LOC: LAB 14:25
PROVIDERS: ATTEND Nurse Practitioner Family
DX: D50.9 Iron deficiency anemia, unspecified (principal)
CPT/HCPCS: 36415; 82728; 83540; 83550; 85025

== ENCOUNTER → 2019-02-24 | Outpatient (CLI) | payer MEDICARE, OTHER ==
[2019-02-24 14:51] LABS: PLATELET COUNT, AUTOMATED 236 K/uL (150-450)
== END ==
LOC: LAB 14:35
PROVIDERS: ATTEND Internal Medicine Gastroenterology
DX: D50.0 Iron deficiency anemia secondary to blood loss (chronic) (principal)
CPT/HCPCS: 36415; 85025

== ENCOUNTER → 2019-02-26 | Outpatient (CLI) | payer MEDICARE, OTHER ==
[~2019-02-26] MED LIST changes: +ACET-1966 PO
== END ==
LOC: LAB 16:41
PROVIDERS: ATTEND Internal Medicine Gastroenterology
DX: D62 Acute posthemorrhagic anemia (principal)
CPT/HCPCS: 36415; 82728

== ENCOUNTER 2019-03-01 14:28 | Inpatient (IN) | payer MEDICARE, OTHER ==
[~2019-03-01] VITALS: Ht 160 cm; Wt 54.0 kg
[~2019-03-01 14:28] MED LIST changes: -ACET-1966 PO; -SUCR1TAB51 PO
[2019-03-01] MEDS ORDERED: ACET-1966 PO (14:47)
--- NOTE | 2019-03-01 14:58 | ER Report ---
History and Physical Time Seen By MD: 14:40 Hx. of Stated Complaint: SOB, FATIGUE, LABS INDICATIVE OF ANEMIA HPI/ROS CHIEF COMPLAINT: here for transfusion HISTORY OF PRESENT ILLNESS: PT states that she has been sob and very tired. Pt has hx of recent gi bleed so her county extension agent at [facility], Dr. Pena, ordered outpt hb test. Pt was called and told to go to the emergency room for blood transfusion due to low hb. Pt has had a recent gi bleed and was scoped by Dr. Pena and was told the cause of her bleed was upper gastritis. Pt has hx of anemia and iron deficiency as well. Pt is poor historian and is here with a infant caregiver. Pt states she has been tired and sob for months.Pt has hx of lung disease. Pt denies any diarrhea. Has not noticed any blood in her stools. No nausea or vomiting. No abd pain REVIEW OF SYSTEMS: Constitutional: No fever, no chills. Eyes: No discharge. ENT: No sore throat. Cardiovascular: No chest pain, no palpitations. Respiratory: No cough, + shortness of breath. Gastrointestinal: No abdominal pain, no vomiting. Genitourinary: No hematuria. Musculoskeletal: No back pain. Skin: No rashes. Neurological: No headache, + fatigue Allergies: Coded Allergies: Sulfa (Sulfonamide Antibiotics) (Verified Allergy, Mild, 12/11/18) bacitracin (Verified Allergy, Mild, rash, 12/11/18) neomycin (Verified Allergy, Mild, rash, 12/11/18) polymyxin B (Verified Allergy, Mild, rash, 12/11/18) Home Meds Active Scripts Escitalopram Oxalate (LEXAPRO) 20 Mg Tablet, 1 TAB PO QDAY, #90 TAB 0 Refills Prov:NELSY LAMBERT APRN AT RISK SPECIALIST-C 10/12/18 Reported Medications Acetaminophen (TYLENOL) 325 Mg Tablet, 325 MG PO, TAB 03/01/19 Pantoprazole Sodium (PANTOPRAZOLE SODIUM) 40 Mg Tablet., 40 MG PO QDAY, TAB.SR 12/27/18 Calcium Carbonate/Vitamin D3 (Calcium 500-Vit D3 600 Tablet) 500 Mg-600 Tablet, 1 TAB PO BID 02/22/18 Discontinued Scripts Alendronate Sodium (FOSAMAX) 70 Mg Tablet, 1 TAB PO QWK, #12 TAB 3 Refills Prov:NELSY LAMBERT APRN AT RISK SPECIALIST-C 06/09/18 Past Medical/Surgical History Pmhx: pulmonary fibrosis, constipation, kidney stone, compression fx, psoriasis, depression, hyperparathyroid, anemia macro irondeficiecny, gi bleed Reviewed Nurses Notes: Yes Old Medical Records Reviewed: Yes Hx Smoking: No Smoking Status: Never Smoker Hx Alcohol Use: Yes Constitutional Vital Sign - Last 24 Hours 03/01/19 03/01/19 03/01/19 03/01/19 14:38 14:38 14:43 14:58 Temp 98.0 Pulse 114 98 107 Resp 25 39 B/P (MAP) 134/65 134/65 (88) Pulse Ox 74 93 80 O2 Delivery Nasal Cannula 03/01/19 03/01/19 03/01/19 03/01/19 15:00 15:13 15:28 15:30 Pulse 94 92 B/P (MAP) 125/60 (81) 122/57 (78) Pulse Ox 93 94 03/01/19 03/01/19 03/01/19 03/01/19 15:32 15:43 15:58 16:00 Pulse ??? 93 B/P (MAP) 117/60 (79) Pulse Ox 96 O2 Flow Rate 3.0 03/01/19 16:13 Pulse 100 Pulse Ox 92 Physical Exam General Appearance: The patient is alert, has no immediate need for airway protection and no signs of toxicity. Eyes: Pupils equal and round no pallor or injection, EOMI ENT: no pharyngeal erythema or exudates, Mucous membranes are moist, TM are nl b/l Respiratory: There are no retractions, lungs are clear to auscultation. Cardiovascular: Regular rate and rhythm. pulses are equal and symmetrical Gastrointestinal: Abdomen is soft and non tender, no masses, bowel sounds normal, no guarding, no rigidity or rebound Rectal: + brown stool Neurological: Cranial nerves II-XII grossly intact, no sensory or motor loss Skin: Warm and dry, no rashes. Musculoskeletal: Neck is supple non tender, no vertebral tenderness Extremities are nontender, nonswollen and have full range of motion. DIFFERENTIAL DIAGNOSIS: After history and physical exam differential diagnosis was considered for iron def anemia, gi bleed, Medical Decision Making Data Points Result Diagram: 03/01/19 1525 03/01/19 1525 Laboratory Hematology Test 03/01/19 14:55 03/01/19 15:25 Stool Occult Blood (IFOB) Positive (NEGATIVE) Red Blood Count 2.45 M/uL (4.17-5.56) Mean Corpuscular Volume 91.8 fL (80.0-96.0) Mean Corpuscular Hemoglobin 29.0 pg (26.0-33.0) Mean Corpuscular Hemoglobin Concent 31.5 g/dL (32.0-36.0) Red Cell Distribution Width 17.1 % (11.5-14.5) Mean Platelet Volume 8.0 fL (7.2-11.1) Neutrophils (%) (Auto) 64.3 % (39.4-72.5) Lymphocytes (%) (Auto) 16.1 % (17.6-49.6) Monocytes (%) (Auto) 11.2 % (4.1-12.4) Eosinophils (%) (Auto) 7.0 % (0.4-6.7) Basophils (%) (Auto) 1.4 % (0.3-1.4) Nucleated RBC Relative Count (auto) 0.1 /100WBC Neutrophils # (Auto) 2.9 K/uL (2.0-7.4) Lymphocytes # (Auto) 0.7 K/uL (1.3-3.6) Monocytes # (Auto) 0.5 K/uL (0.3-1.0) Eosinophils # (Auto) 0.3 K/uL (0.0-0.5) Basophils # (Auto) 0.1 K/uL (0.0-0.1) Nucleated RBC Absolute Count (auto) 0.00 K/uL Sodium Level 139 mmol/L (137-145) Potassium Level 3.5 mmol/L (3.5-5.0) Chloride Level 105 mmol/L (98-107) Carbon Dioxide Level 31 mmol/L (22-31) Blood Urea Nitrogen 12 mg/dl (7-18) Creatinine 0.70 mg/dl (0.52-1.04) Glomerular Filtration Rate Calc > 60.0 Random Glucose 97 mg/dl (75-110) Calcium Level 9.0 mg/dl (8.4-10.2) Iron Level 13 ug/dl (37-170) Total Iron Binding Capacity 266 ug/dl (261-497) Percent Iron Saturation 4.9 % Total Bilirubin 0.3 mg/dl (0.2-1.3) Aspartate Amino Transf (AST/SGOT) 34 U/L (0-35) Alanine Aminotransferase (ALT/SGPT) 18 U/L (0-56) Alkaline Phosphatase 101 U/L (0-126) Troponin I 0.013 ng/ml Total Protein 6.8 g/dl (6.3-8.2) Albumin 2.8 g/dl (3.5-5.0) Chemistry Test 03/01/19 14:55 03/01/19 15:25 Stool Occult Blood (IFOB) Positive (NEGATIVE) White Blood Count 4.5 k/uL (4.5-11.0) Red Blood Count 2.45 M/uL (4.17-5.56) Hemoglobin 7.1 g/dL (12.0-16.0) Hematocrit 22.5 % (34.0-47.0) Mean Corpuscular Volume 91.8 fL (80.0-96.0) Mean Corpuscular Hemoglobin 29.0 pg (26.0-33.0) Mean Corpuscular Hemoglobin Concent 31.5 g/dL (32.0-36.0) Red Cell Distribution Width 17.1 % (11.5-14.5) Platelet Count 191 K/uL (150-450) Mean Platelet Volume 8.0 fL (7.2-11.1) Neutrophils (%) (Auto) 64.3 % (39.4-72.5) Lymphocytes (%) (Auto) 16.1 % (17.6-49.6) Monocytes (%) (Auto) 11.2 % (4.1-12.4) Eosinophils (%) (Auto) 7.0 % (0.4-6.7) Basophils (%) (Auto) 1.4 % (0.3-1.4) Nucleated RBC Relative Count (auto) 0.1 /100WBC Neutrophils # (Auto) 2.9 K/uL (2.0-7.4) Lymphocytes # (Auto) 0.7 K/uL (1.3-3.6) Monocytes # (Auto) 0.5 K/uL (0.3-1.0) Eosinophils # (Auto) 0.3 K/uL (0.0-0.5) Basophils # (Auto) 0.1 K/uL (0.0-0.1) Nucleated RBC Absolute Count (auto) 0.00 K/uL Glomerular Filtration Rate Calc > 60.0 Calcium Level 9.0 mg/dl (8.4-10.2) Iron Level 13 ug/dl (37-170) Total Iron Binding Capacity 266 ug/dl (261-497) Percent Iron Saturation 4.9 % Total Bilirubin 0.3 mg/dl (0.2-1.3) Aspartate Amino Transf (AST/SGOT) 34 U/L (0-35) Alanine Aminotransferase (ALT/SGPT) 18 U/L (0-56) Alkaline Phosphatase 101 U/L (0-126) Troponin I 0.013 ng/ml Total Protein 6.8 g/dl (6.3-8.2) Albumin 2.8 g/dl (3.5-5.0) ED Course/Re-evaluation ED Course Will type and cross and order 2 units prbc 03/01/2019 5:24:43 pm Pts blood has multiple antibodies and is unable to find a match here in [facility]. Blood is being drawn to send out to [facility] if they are able to find a match. Blood bank states it is unlikely for her to obtain blood before midnight tonight. Daughter is concerned with her going home. Will speak with Hospitalist. 03/01/2019 5:41:47 pm Spoke with the hospitalist, will accept. Decision to Disposition Date: Mar 01, 2019 Decision to Disposition Time: 17:42 Depart Departure Latest Vital Signs Vital Signs Date Time Temp Pulse Resp B/P (MAP) Pulse Ox O2 Delivery O2 Flow Rate FiO2 03/01/19 16:13 100 92 03/01/19 16:00 117/60 (79) 03/01/19 15:32 3.0 03/01/19 14:43 39 03/01/19 14:38 98.0 Nasal Cannula Impression: Primary Impression: Symptomatic anemia Additional Impressions: Upper GI bleeding Chronic idiopathic pulmonary fibrosis Iron deficiency Condition: Condition Unchanged Disposition: Admitted from ER Referrals: NELSY LAMBERT APRN AT RISK SPECIALIST-C (PCP) ROSIE JONES MD 5 Days Your iron levels are low and you may require a transfusion or iron Patient Instructions: Anemia (ED), Blood Transfusion (GEN), Iron Deficiency Anemia (ED) Problem Qualifiers STUART JEAN BAPTISTE DO Mar 01, 2019 14:57
[2019-03-01 15:48] LABS: PLATELET COUNT, AUTOMATED 191 K/uL (150-450)
[2019-03-01] MEDS ORDERED: PANTOPRAZOLE SOD 40 MG IV VIAL IVP ONE (16:15)
--- NOTE | 2019-03-01 16:24 | RADIOLOGY IMAGING REPORT ---
[place] [facility] [place] NAME: Yolette Munson : 1945 MR: [id number] V: [id number] EXAM DATE: ORDERING PHYSICIAN: STUART JEAN BAPTISTE TECHNOLOGIST: Location: [facility] [place] Patient: Yolette Munson : 1945 Visit/Account:[id number] Date of Sevice: 03/01/2019 CHEST PA LAT History: sob FINDINGS: Comparison studies: Comparison chest x-ray 06/04/[address] 02/19/2018 Tubes and Lines: None. Lungs and pleura: There are extensive coarsened mixed interstitial airspace opacities through both lungs which have progressed significantly since 2017. Previous CT demonstrated extensive honeycombin g and septal thickening. Mediastinum: Mediastinum is enlarged and prior CT scan demonstrated mediastinal adenopathy. This al so demonstrates progression since 2017. Cardiac silhouette: normal . Osseous structures: Unremarkable for age . IMPRESSION: Progressing extensive chronic interstitial lung disease versus acute pneumonitis or pulmonary edema superimposed upon extensive chronic lung disease. Mediastinal adenopathy Report Dictated By: Keenan Aguirre MD at 03/01/2019 4:17 PM Report E-Signed By: Keenan Aguirre MD at 03/01/2019 4:19 PM WSN:[email or web address]
[2019-03-01 18:23] VITALS: BP 117/59
[2019-03-01] MEDS ORDERED: BUMETANIDE 1 MG/4 ML SDV IV ONE (20:50)
[2019-03-01] MEDS ORDERED: ACETAMINOPHEN 325 MG TAB PO PRN (20:50)
[2019-03-01] MEDS ORDERED: FERRIC CARBOXY 750 MG SDV 750 MG in NS(*) 0.9% 250 ML BAG 250 ML IVPB ONE (21:05)
[2019-03-01 21:21] VITALS: BP 107/54
[2019-03-01] MEDS: SUCRALFATE 1 GM TAB PO SCH (21:33)
[2019-03-01] MEDS ORDERED: NS(*) 0.9% 250 ML BAG 250 ML ONE (21:36)
--- NOTE | 2019-03-01 21:40 | History & Physical ---
History of Present Illness History of Present Illness 73yo female with a h/o IPF, iron deficiency anemia and gastritis who was told to go to the ER today to get a blood transfusion related to anemia. On 12/11/18, she was transferred to [facility] for concern of ACS. She ended up having an EGD and was found to have severe gastritis, was transfused 2 units of PRBC and was started on Protonix. She hasn't felt back to her baseline. She has had persistent weakness and more SOB. She denies any new changes in symptoms over the last couple of weeks. She denies cp/worsening sob/orthopnea/LE edema/melena/nausea/blood in stool/increased frequency of stools/new medications . In the ER, she was going to get 2 units of blood, but because of antibodies interfering with a match that will be delayed until possibly tomorrow. History Problems: (1) Psoriasis Status: Chronic (2) Iron deficiency Status: Chronic (3) Depression Status: Chronic (4) Chronic idiopathic pulmonary fibrosis Status: Chronic (5) Obstructive sleep apnea Status: Chronic (6) Gastritis Status: Chronic Home Meds Active Scripts Escitalopram Oxalate (LEXAPRO) 20 Mg Tablet, 1 TAB PO QDAY, #90 TAB 0 Refills Prov:NELSY LAMBERT APRN-C 10/12/18 Reported Medications Acetaminophen (TYLENOL) 325 Mg Tablet, 325 MG PO Q6H PRN for pain, TAB 03/01/19 Pantoprazole Sodium (PANTOPRAZOLE SODIUM) 40 Mg Tablet.dr, 40 MG PO QDAY, TAB.SR 12/27/18 Calcium Carbonate/Vitamin D3 (Calcium 500-Vit D3 600 Tablet) 500 Mg-600 Tablet, 1 TAB PO DAILY 02/22/18 Discontinued Scripts Alendronate Sodium (FOSAMAX) 70 Mg Tablet, 1 TAB PO QWK, #12 TAB 3 Refills Prov:NELSY LAMBERT APRNP-C 06/09/18 Allergies: Coded Allergies: Sulfa (Sulfonamide Antibiotics) (Verified Allergy, Mild, 12/11/18) bacitracin (Verified Allergy, Mild, rash, 12/11/18) neomycin (Verified Allergy, Mild, rash, 12/11/18) polymyxin B (Verified Allergy, Mild, rash, 12/11/18) Patient History: FH: HTN (hypertension) FATHER FH: alcoholism MOTHER Brother, , Age:33 Brother FH: congenital heart problem Brother FH: depression MOTHER FH: emphysema FATHER FH: heart attack FATHER Brother FH: stroke MOTHER Hx Smoking: No Smoking Status: Never Smoker Caffeine Intake: Soda Caffeine/Cups Per Day: 1/day Hx Alcohol Use: Yes Social Drug Use: Never Review of Systems All Systems Reviewed/Normal: Yes, Except as Noted Exam Vital Signs Vital Signs Date Time Temp Pulse Resp B/P (MAP) Pulse Ox O2 Delivery O2 Flow Rate FiO2 03/01/19 18:23 98.2 97 28 117/59 (78) 92 Nasal Cannula 2.0 General Appearance: Alert, Awake, No Acute Distress (Pale) Neuro: No Gross deficits (Left eyelid tends to close, but when asked to open her eyes, it responds symmetrically.) Eyes: PERRLA ENT: Moist Mucous Membranes Cardiovascular: No JVD Respiratory: Other (Insp crackles bilaterally in the entire lungs) GI: Abd Soft and Non-Tender Extremities: No Edema Integumentary: No Jaundice, No Cyanosis Medical Decision Making Data Points Result Diagram: 03/01/19 1525 03/01/19 1525 Item Value Date Time Iron Level 13 ug/dl L 03/01/19 1525 Total Iron Binding Capacity 266 ug/dl 03/01/19 1525 Percent Iron Saturation 4.9 % 03/01/19 1525 Ferritin 11 ng/ml 03/01/19 1350 Aspartate Amino Transf (AST/SGOT) 34 U/L 03/01/19 1525 Alanine Aminotransferase (ALT/SGPT) 18 U/L 03/01/19 1525 Alkaline Phosphatase 101 U/L 03/01/19 1525 Troponin I 0.013 ng/ml 03/01/19 1525 Ferritin 12 ng/ml 02/26/19 1656 Ferritin 40 ng/ml 01/10/19 1405 Iron Level 67 ug/dl 01/10/19 1405 Total Iron Binding Capacity 212 ug/dl L 01/10/19 1405 Iron Level 78 ug/dl 12/27/18 1608 Total Iron Binding Capacity 211 ug/dl L 12/27/18 1608 Ferritin 76 ng/ml 12/27/18 1608 Hemoglobin 9.6 g/dL L 01/10/19 1405 Hemoglobin 7.7 g/dL *L 02/24/19 1446 Hemoglobin 7.5 g/dL *L 03/01/19 1350 Hemoglobin 7.1 g/dL *L 03/01/19 1525 Mean Corpuscular Volume 94.5 fL 02/24/19 1446 Mean Corpuscular Volume 92.2 fL 03/01/19 1350 Mean Corpuscular Volume 91.8 fL 03/01/19 1525 Stool Occult Blood (IFOB) Positive H 03/01/19 1455 EKG / Imaging Imaging CXR - Progressing extensive chronic interstitial lung disease versus acute pneumonitis or pulmonary edema superimposed upon extensive chronic lung disease. Mediastinal adenopathy Assessment and Plan Problems: (1) Anemia, iron deficiency Status: Chronic Assessment & Plan: She presented with a Hgb of 7.1, an iron of 13, TIBC of 266 and ferritin of 11. She is not acutely symptomatic, but has been more tired and SOB for many weeks. Her Hgb was 9.5 and ferritin was 19 on 01/24/19. She has been followed by Dr. Jones and she has intermittently received Injectafer infusions because she cannot tolerate the oral iron. She will receive 2 units of PRBC when she is appropriate crossmatched. She will get a dose of Bumex 0.25mg IV between units. She will get a dose of Injectafer 750mg IV tonight. (2) Gastritis Status: Chronic Assessment & Plan: Severe gastritis found on EGD on 12/12/18. She was started on Protonix and has followed up with Dr. Osorio. Per his last note in February, "If she develops a worsening anemia or iron deficiency we may need to repeat an iron infusion, transfuse packed red blood cells are complete and evaluation of her small bowel with a CT enterography/PillCam". She was positive for occult stool in the ER. Will double the Protonix to bid and start Carafate for now. (3) Chronic idiopathic pulmonary fibrosis Status: Chronic Assessment & Plan: Followed by Dr. Sauer. Per his notes, she should be no pirfenidone, but the patient doesn't report taking it. Copies to: ROSIE JONES MD; LIANA SAUER MD; ANGELINA OSORIO MD ; Venous Thromboembolism Antithrombotics Is Pt On Any Antithrombotics?: No Exam Sepsis Risk: No Definite Risk BLAINE NEWTON MD Mar 01, 2019 21:40
[2019-03-02 03:42] VITALS: BP 119/69
[2019-03-02] MEDS: SUCRALFATE 1 GM TAB PO SCH ×4 (06:04→20:43)
[2019-03-02 06:58] VITALS: BP 127/69
[2019-03-02] MEDS ORDERED: PANTOPRAZOLE SOD 40 MG TABEC PO SCH (09:00)
[2019-03-02] MEDS: PANTOPRAZOLE SOD 40 MG TABEC PO SCH ×2 (10:27→20:43)
[2019-03-02] MEDS: ESCITALOPRAM OXALATE 10 MG TAB PO SCH (10:27)
[2019-03-02 11:18] VITALS: Ht 160 cm; Wt 54.0 kg
--- NOTE | 2019-03-02 11:19 | Hospitalist Progress Note ---
Subjective Progress Notes Subjective No new complaints. Dyspnea with virtually any activity. Physical Exam Vital Signs Date Time Temp Pulse Resp B/P (MAP) Pulse Ox O2 Delivery O2 Flow Rate FiO2 03/02/19 07:33 95 Nasal Cannula 3.0 03/02/19 06:58 98.1 97 20 127/69 (88) Intake and Output 03/02/19 07:00 Intake Total 430 ml Balance 430 ml Intake Oral 100 ml IV Total 330 ml # Voids 1 General Appearance: Alert, Awake Cardiovascular: Regular Rate and Rhythm Respiratory: Other (rales present throughout all lung grove) GI: Soft and Non-Tender Extremities: Warm, Perfused Result Diagram: 03/01/19 1525 03/01/19 1525 Assessment and Plan Problems: (1) Anemia, iron deficiency Status: Chronic Assessment & Plan: She presented with a Hgb of 7.1, an iron of 13, TIBC of 266 and ferritin of 11. Her Hgb was 9.5 and ferritin was 19 on 01/24/19. She is symptomatic/SOB with activities. She has been followed by Dr. Villar and she has intermittently received iron infusions because she cannot tolerate the oral iron. She will receive 2 units of PRBC when she is appropriately crossmatched. She will get a dose of Bumex 0.25mg IV between units. She did receive dose of IV iron 750mg IV last night. (2) Gastritis Status: Chronic Assessment & Plan: Severe gastritis found on EGD on 12/12/18. She was started on Protonix and has followed up with Dr. Pena. Per his last note in February, "If she develops a worsening anemia or iron deficiency we may need to repeat an iron infusion, transfuse packed red blood cells and evaluation of her small bowel with a CT enterography/PillCam". She was positive for occult stool in the ER. We doubled the Protonix to BID and started Carafate for now. (3) Chronic idiopathic pulmonary fibrosis Status: Chronic Assessment & Plan: Followed by Dr. Sauer. Oxygen dependent. Per his notes, she should be on pirfenidone, but the patient/daughter report she hasn't been taking it, due to side effects and "not remembering to take it". The anemia appears to have been exacerbating her symptoms significantly as well. Exam Sepsis Risk: No Definite Risk KATE FLORES MD Mar 02, 2019 11:19
[2019-03-02 16:33] VITALS: BP 117/60
[2019-03-02] MEDS ORDERED: NS(*) 0.9% 500 ML BAG 500 ML ONE (16:45)
[2019-03-02 19:13] VITALS: BP 114/58
[2019-03-02 23:07] VITALS: BP 104/51
[2019-03-03] VITALS (19 sets, daily range): BP systolic 83–114; BP diastolic 46–69
[2019-03-03 06:05] LABS: PLATELET COUNT, AUTOMATED 147 K/uL (150-450)
[2019-03-03] MEDS: SUCRALFATE 1 GM TAB PO SCH ×4 (06:10→21:18)
[2019-03-03] MEDS ORDERED: diphenhydrAMINE 25 MG CAP PO ONE ×2 (07:40→16:55)
[2019-03-03] MEDS ORDERED: ACETAMINOPHEN 325 MG TAB PO ONE (07:40)
[2019-03-03] MEDS: PANTOPRAZOLE SOD 40 MG TABEC PO SCH ×2 (07:59→21:18)
[2019-03-03] MEDS: ESCITALOPRAM OXALATE 10 MG TAB PO SCH (07:59)
[2019-03-03] MEDS ORDERED: NS(*) 0.9% 500 ML BAG 500 ML IV PRN (08:30)
--- NOTE | 2019-03-03 11:21 | Hospitalist Progress Note ---
Subjective Progress Notes Subjective This patient was admitted for anemia. She had no acute events overnight. Patient Complains of: Cardiovascular: No: Chest Pain Respiratory: No: Shortness of Breath Physical Exam Vital Signs Date Time Temp Pulse Resp B/P (MAP) Pulse Ox O2 Delivery O2 Flow Rate FiO2 03/03/19 11:00 80 20 86/46 (59) 96 Nasal Cannula 3.0 03/03/19 10:36 97.9 Intake and Output 03/03/19 07:00 Intake Total 0 ml Balance 0 ml Intake Oral 0 ml # Voids 3 # Bowel Movements 1 Cardiovascular: Regular Rate and Rhythm Respiratory: Clear to Auscultation Result Diagram: 03/03/19 0534 03/03/19 0534 Assessment and Plan Problems: (1) Anemia, iron deficiency Status: Chronic Assessment & Plan: She is followed by Dr. Ibarra and has required iron infusions in the past. She received iron during this admission, but her HGB is not improving. She is scheduled to receive one unit of least incompatible blood today and will be premedicated. An additional unit is in the lab if she doesn't improve. (2) Gastritis Status: Chronic Assessment & Plan: Severe gastritis found on EGD on 12/12/18. She was started on Protonix and has followed up with Dr. Pena. Per his last note in February, "If she develops a worsening anemia or iron deficiency we may need to repeat an iron infusion, transfuse packed red blood cells and evaluation of her small bowel with a CT enterography/PillCam". She was positive for occult stool in the ER. We doubled the Protonix to BID and started Carafate for now. (3) Chronic idiopathic pulmonary fibrosis Status: Chronic Assessment & Plan: Followed by Dr. Sauer. Oxygen dependent. Per his notes, she should be on pirfenidone, but the patient/daughter report she hasn't been taking it, due to side effects and "not remembering to take it". The anemia appears to have been exacerbating her symptoms significantly as well. Exam Sepsis Risk: Severe Sepsis Risk CARMELA MENDOSA DO Mar 03, 2019 11:21
--- NOTE | 2019-03-03 17:30 | NUR ---
Pt declines the one time dose of Benadryl at this time.
[2019-03-04 05:36] VITALS: BP 104/60
[2019-03-04 05:39] LABS: PLATELET COUNT, AUTOMATED 134 K/uL (150-450)
[2019-03-04] MEDS: SUCRALFATE 1 GM TAB PO SCH ×2 (05:53→11:38)
[2019-03-04 06:34] VITALS: BP 106/64
[2019-03-04] MEDS: PANTOPRAZOLE SOD 40 MG TABEC PO SCH (09:19)
[2019-03-04] MEDS: ESCITALOPRAM OXALATE 10 MG TAB PO SCH (09:19)
[2019-03-04] MEDS ORDERED: PANT40TA65 PO (11:23)
[2019-03-04] MEDS ORDERED: SUCR1TAB51 PO (11:23)
--- NOTE | 2019-03-04 11:30 | Hospitalist Depart ---
Discharge Summary Reason for Hosp/Final Diag: (1) Anemia, iron deficiency Status: Chronic Hospital Course & Plan: She is followed by Dr. Ibarra and has required iron infusions in the past. She received iron during this admission, but her HGB is not improving. She received one unit of least incompatible blood and was premedicated. Patient and family report she is near or at baseline, ambulated without dizziness or weakness. (2) Gastritis Status: Chronic Hospital Course & Plan: Severe gastritis found on EGD on 12/12/18. She was started on Protonix and has followed up with Dr. Osorio. Per his last note in February, "If she develops a worsening anemia or iron deficiency we may need to repeat an iron infusion, transfuse packed red blood cells and evaluation of her small bowel with a CT enterography/PillCam". She was positive for occult stool in the ER. We doubled the Protonix to BID and started Carafate for 14 days, then resume usual daily Protonix dosing. (3) Chronic idiopathic pulmonary fibrosis Status: Chronic Hospital Course & Plan: Followed by Dr. Sauer. Oxygen dependent. Per his notes, she should be on pirfenidone, but the patient/daughter report she hasn't been taking it, due to side effects and "not remembering to take it". The anemia appears to have been exacerbating her symptoms significantly as well. Recommend resuming. Departure Weight (Pounds): 119 Result Diagram: 03/04/1952103/03/19 0534 Condition: Improved Discharge: Home Health Home Health RN Follow Up For: Medication Management Home Health [employer] Follow Up For: ADL Assistance Discharge Instructions Home Meds Active Scripts Sucralfate (SUCRALFATE) 1 Gm Tablet, 1 GM PO ACHS1 for 14 Days, #60 TAB Take with meals and at bedtime for next 14 days. Prov:JUAN RAMON GLASGOW DO 03/04/19 Pantoprazole Sodium (PANTOPRAZOLE SODIUM) 40 Mg Tablet., 40 MG PO QDAY for 14 Days, #60 TAB.SR Take this medication twice a day for the next 14 days then decrease to usual dose of once daily. Prov:JUAN RAMON GLASGOW DO 03/04/19 Escitalopram Oxalate (LEXAPRO) 20 Mg Tablet, 1 TAB PO QDAY, #90 TAB 0 Refills Prov:NELSY LAMBERT APRNP-C 10/12/18 Reported Medications Acetaminophen (TYLENOL) 325 Mg Tablet, 325 MG PO Q6H PRN for pain, TAB 03/01/19 Calcium Carbonate/Vitamin D3 (Calcium 500-Vit D3 600 Tablet) 500 Mg-600 Tablet, 1 TAB PO DAILY 02/22/18 Discontinued Scripts Alendronate Sodium (FOSAMAX) 70 Mg Tablet, 1 TAB PO QWK, #12 TAB 3 Refills Prov:NELSY LAMBERT APRN-C 06/09/18 Diet: Regular Activity: As Tolerated Special Instructions: Follow up with PCP and GI. Take Protonix twice daily for 14 days then resume once daily dosing. Take Carafate for 14 days with meals and at bedtime. Follow up with your lung doctor in regard to resuming medication. Copies to: NELSY LAMBERT APRN-C; LIANA SAUER MD; ANGELINA OSORIO MD ; Venous Thromboembolism Antithrombotics Is Pt On Any Antithrombotics?: No JUAN RAMON GLASGOW DO Mar 04, 2019 11:30
--- NOTE | 2019-03-04 11:42 | NUR ---
Physical Therapy Impression PT eval complete. Pt denied lightheaded/dizziness and weakness during ambulation. BP WNL, SO2 decreased to 82% on 6L O2. Discussed findings with MD. Pt likely at baseline functional mobility and tolerated activity without anemia symptoms. SO2 decreased but may be due to IPF. Physical Therapy Goals 1. Mod I bed mobility. 2. SBA sit<>stand transfers. 3. SBA ambulation x70' with appropriate assistive device. 4. Ascend/descend 1 step CGA. Patient's Goals
[2019-03-05] MEDS ORDERED: INFLUENZA VIRUS VAC 0.5ML SYR IM ONLY ONE (09:00)
== END 2019-03-04 13:10 | disposition home health service (06) | DRG 811 ==
LOC: ER 14:54 → MED 17:49
PROVIDERS: ADMIT Internal Medicine; ATTEND Internal Medicine
PROC: 30243N1 Transfusion of Nonautologous Red Blood Cells into Central Vein, Percutaneous Approach (ICD-10-PCS; principal; 2019-03-03)
DX: D50.9 Iron deficiency anemia, unspecified (principal); K29.51 Unspecified chronic gastritis with bleeding; J84.112 Idiopathic pulmonary fibrosis; R53.1 Weakness; F32.9 Major depressive disorder, single episode, unspecified; G47.33 Obstructive sleep apnea (adult) (pediatric); Z99.81 Dependence on supplemental oxygen; Z88.2 Allergy status to sulfonamides; Z88.6 Allergy status to analgesic agent; Z88.1 Allergy status to other antibiotic agents
CPT/HCPCS: 36415; 36430; 71046; 81479; 82040; 82247; 82274; 82310; 82374; 82435; 82565; 82607; 82728; 82746; 82947; 83540; 83550; 84075; 84132; 84155; 84295; 84450; 84460; 84484; 84520; 85014; 85018; 85025; 85045; 86850; 86860; 86870; 86880; 86900; 86901; 86902; 86906; 86920; 86922; 86970; 86978; 97162; 99284; C9113; J1439; J3490; J7040; J7050; P9016; Q0163

== ENCOUNTER → 2019-03-01 | Outpatient (CLI) | payer MEDICARE, OTHER ==
[~2019-03-01] MED LIST changes: +SUCR1TAB51 PO
[2019-03-01 14:16] LABS: PLATELET COUNT, AUTOMATED 243 K/uL (150-450)
== END ==
LOC: LAB 13:36
PROVIDERS: ATTEND Internal Medicine Gastroenterology
DX: D50.0 Iron deficiency anemia secondary to blood loss (chronic) (principal)
CPT/HCPCS: 36415; 82607; 82728; 82746; 85025; 85045

== ENCOUNTER → 2019-03-15 | Outpatient (CLI) | payer MEDICARE, OTHER ==
[2019-03-02 11:18] VITALS: BMI 21.1
[~2019-03-15] MED LIST changes: +ACET-1966 PO; +CLOB15CR22 TP; +SUCR1TAB51 PO
[2019-03-15 17:03] LABS: PLATELET COUNT, AUTOMATED 229 K/uL (150-450)
== END ==
LOC: LAB 16:28
PROVIDERS: ATTEND Nurse Practitioner Family
DX: D50.9 Iron deficiency anemia, unspecified (principal)
CPT/HCPCS: 36415; 85025

== ENCOUNTER → 2019-04-15 | Outpatient (CLI) | payer MEDICARE, OTHER ==
[2019-03-02 11:18] VITALS: BMI 21.1
[~2019-04-15] MED LIST changes: +LEVO750T44 PO
[2019-04-15 15:22] LABS: PLATELET COUNT, AUTOMATED 182 K/uL (150-450)
--- NOTE | 2019-04-15 15:58 | RADIOLOGY IMAGING REPORT ---
FACILITY: [facility] PATIENT NAME: Yolette Munson : 1945 MR: [id number] V: [id number] EXAM DATE: ORDERING PHYSICIAN: NELSY LAMBERT TECHNOLOGIST: Location: [facility] Patient: Yolette Munson : 1945 Visit/Account:[id number] Date of Sevice: 04/15/2019 Exam type: CHEST PA LAT History: abn lung sound/fever Comparison: March 01, 2019. Findings: Extensive interstitial and alveolar opacities are again seen throughout the lungs with adjacent areas of pleural thickening. The appearance is similar to the prior study and may simply represent chroni c scarring. A superimposed infectious/inflammatory process would be difficult to exclude given the u nderlying chronic changes. The cardiac silhouette appears unchanged. This osteopenia the visualized bones and spondylotic changes of the thoracic spine. IMPRESSION: 1. Extensive interstitial and alveolar opacities appear similar to the prior study with adjacent are as of pleural thickening. A superimposed infectious/inflammatory process would be difficult to exclu de given the underlying chronic changes. Report Dictated By: Vernell Lloyd MD at 04/15/2019 3:50 PM Report E-Signed By: Vernell Lloyd MD at 04/15/2019 3:53 PM WSN:[email or web address]
== END ==
LOC: LAB 15:05
PROVIDERS: ATTEND Nurse Practitioner Family
DX: R09.89 Other specified symptoms and signs involving the circulatory and respiratory systems (principal); R50.9 Fever, unspecified
CPT/HCPCS: 36415; 71046; 82040; 82247; 82310; 82374; 82435; 82565; 82947; 84075; 84132; 84155; 84295; 84450; 84460; 84520; 85025; 86140

== ENCOUNTER → 2019-04-20 | Outpatient (CLI) | payer MEDICARE, OTHER ==
[2019-03-02 11:18] VITALS: BMI 21.1
[~2019-04-20] MED LIST changes: -OMEP-125 PO; +OMEP-126 PO
--- NOTE | 2019-04-20 17:26 | RADIOLOGY IMAGING REPORT ---
[place] [facility] [place] NAME: Yolette Munson : 1945 MR: [id number] V: [id number] EXAM DATE: ORDERING PHYSICIAN: LIANA RACHEL TECHNOLOGIST: Location: [facility] Patient: Yolette Munson : 1945 Visit/Account:[id number] Date of Sevice: 04/20/2019 CT CHEST W/O CONTRAST COMPARISON: 02/19/2018. HISTORY: Idiopathic pulmonary fibrosis. TECHNIQUE: Axial CT of the chest without intravenous contrast, "interstitial lung disease protocol", including discontiguous 1 mm and contiguous 3 mm axial reconstructions, limited prone and limited exp iratory sections. Coronal and sagittal reformats. One of the following dose optimization techniques was utilized in the performance of this exam: auto mated exposure control; adjustment of the mA and/or kV according to patient size; or use of iterative reconstruction technique. Specific details can be referenced in the facility's radiology CT exam op erational policy. CT CHEST FINDINGS: CARDIAC: Low-density blood pool consistent with anemia. Moderate coronary artery calcifications. MEDIASTINUM/ERIKA: Prominent but upper normal sized mediastinal nodes. These are stable. No hilar ernestine nopathy within the limitations of a noncontrast study. VASCULATURE: Mild vascular calcifications. Borderline enlarged main pulmonary artery, about 3 cm, alonzo ggestive of PA hypertension. CHEST WALL: No adenopathy or mass. LUNGS/PLEURA: Diffuse honeycombing, septal thickening and traction bronchiectasis, no appreciable ch cecilia in distribution or extent compared to February 19, 2018. No significant groundglass components. No n ew nodule or mass. No clearing opacities on prone scanning. No evidence of significant air trapping o n expiratory imaging. BONES: Mild degenerative changes in the visualized spine. No bony lesion or acute appearing fractur e. LIMITED ABDOMEN: Moderate generalized ascites with a micronodular hepatic surface contour, consisten t with cirrhosis. Borderline enlarged spleen, about 13 cm. Moderate vascular calcifications. Tubular densities adjacent to the distal esophagus which are highly suggestive of paraesophageal varices. OTHER: Negative. IMPRESSION: 1. Interstitial lung changes consistent with idiopathic pulmonary fibrosis with no appreciable rodríguez e from 02/19/2018. 2. Cirrhotic liver with a borderline enlarged spleen and moderate generalized ascites in the incompl etely imaged upper abdomen. 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 3. Findings suggestive of anemia. 4. Borderline size main pulmonary artery which may be due to pulmonary artery hypertension. Report Dictated By: Lele Stallings at 04/20/2019 5:08 PM Report E-Signed By: Lele Stallings at 04/20/2019 5:22 PM WSN:[email or web address]
== END ==
LOC: CT 00:50
PROVIDERS: ATTEND Internal Medicine
DX: J84.112 Idiopathic pulmonary fibrosis (principal)
CPT/HCPCS: 71250

== ENCOUNTER → 2019-04-25 | Outpatient (CLI) | payer MEDICARE, OTHER ==
[2019-03-02 11:18] VITALS: BMI 21.1
[~2019-04-25] MED LIST changes: +CIPR-214; +FURO-47; +POTA20PA25 PO; +SPIR100T33; +TRAM-420 PO
[2019-04-25 09:30] LABS: INR 1.04
--- NOTE | 2019-04-25 16:15 | RADIOLOGY IMAGING REPORT ---
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 Liver: Liver appears small with a micronodular contour consistent with the reported history of cirrho sis. Appropriate is identified in the portal and hepatic veins. Common duct: Normal, 3.1 mm diameter. Pancreas: Partially obscured by bowel, visualized aspects unremarkable. Right kidney: Right kidney appears unremarkable measuring 8.8 cm in length Upper abdominal aorta and IVC: Patent. Ascites: There are small pockets of ascites seen throughout the abdomen IMPRESSION: Cirrhotic appearance to the liver. There is appropriate flow identified in the portal and hepatic ve ins. Small pockets of ascites are seen throughout the abdomen Report Dictated By: Vernell Lloyd MD at 04/25/2019 4:06 PM Report E-Signed By: Vernell Lloyd MD at 04/25/2019 4:11 PM CALRISSEN:[email or web address]
--- NOTE | 2019-04-26 14:51 | RADIOLOGY IMAGING REPORT ---
[place] [facility] [place]: Yolette Munson : 1945 MR: [id number] V: [id number] EXAM DATE: ORDERING PHYSICIAN: ANGELINA OSORIO TECHNOLOGIST: Location: [facility] [place] Patient: Yolette Munson : 1945 Visit/Account:[id number] Date of Sevice: 04/25/2019 Exam type: US PARACENTESIS History: Ascites Comparison: April 25, 2019. Findings: Informed consent was obtained from the patient's daughter. Only small pockets of fluid were identifi ed scattered throughout the abdomen. Since the paracentesis was ordered as a diagnostic study attemp t was made to remove a small quantity of ascites. The patient's right lower abdomen was prepped and draped usual sterile fashion. Local anesthesia was accomplished with 1% lidocaine. Utilizing sonogr aphic guidance a paracentesis catheter was advanced percutaneously into a small pocket of ascites. A pproximately 2 mL of clear fluid was removed. The sample was sent to the laboratory for evaluation. The procedure was accomplished without apparent complication. IMPRESSION: 1. As above Report Dictated By: Vernell Lloyd MD at 04/26/2019 2:45 PM Report E-Signed By: Vernell Lloyd MD at 04/26/2019 2:47 PM WSN:[email or web address]
== END ==
LOC: US 07:04
PROVIDERS: ATTEND Internal Medicine Gastroenterology
DX: K74.60 Unspecified cirrhosis of liver (principal); R18.8 Other ascites; J84.112 Idiopathic pulmonary fibrosis; R10.11 Right upper quadrant pain
CPT/HCPCS: 36415; 49083; 76705; 85610; 87071; 87073; A7048

== ENCOUNTER → 2019-04-27 | Outpatient (CLI) | payer MEDICARE, OTHER ==
[2019-03-02 11:18] VITALS: BMI 21.1
[2019-04-27 13:19] LABS: PLATELET COUNT, AUTOMATED 200 K/uL (150-450)
== END ==
LOC: LAB 13:04
PROVIDERS: ATTEND Nurse Practitioner Family
DX: D50.9 Iron deficiency anemia, unspecified (principal); I10 Essential (primary) hypertension
CPT/HCPCS: 36415; 82040; 82247; 82310; 82374; 82435; 82565; 82947; 84075; 84132; 84155; 84295; 84450; 84460; 84520; 85025

== ENCOUNTER → 2019-04-29 | Outpatient (CLI) | payer MEDICARE, OTHER ==
[2019-03-02 11:18] VITALS: BMI 21.1
[~2019-04-29] MED LIST changes: +FOLI-68 PO
== END ==
LOC: LAB 11:55
PROVIDERS: ATTEND Nurse Practitioner Family
DX: E87.6 Hypokalemia (principal); R71.8 Other abnormality of red blood cells
CPT/HCPCS: 36415; 82310; 82374; 82435; 82565; 82607; 82746; 82947; 84132; 84295; 84520

== ENCOUNTER → 2019-05-04 | Outpatient (CLI) | payer MEDICARE, OTHER ==
[2019-03-02 11:18] VITALS: BMI 21.1
[2019-05-04 12:57] LABS: PLATELET COUNT, AUTOMATED 136 K/uL (150-450)
== END ==
LOC: LAB 11:28
PROVIDERS: ATTEND Nurse Practitioner Family
DX: E87.6 Hypokalemia (principal); D50.0 Iron deficiency anemia secondary to blood loss (chronic)
CPT/HCPCS: 36415; 82310; 82374; 82435; 82565; 82728; 82947; 83540; 83550; 84132; 84295; 84520; 85025

== ENCOUNTER → 2019-05-24 | Outpatient (CLI) | payer MEDICARE, OTHER ==
[2019-03-02 11:18] VITALS: BMI 21.1
[~2019-05-24] MED LIST changes: +NYST15CR32 TP
[2019-05-24 12:46] LABS: PLATELET COUNT, AUTOMATED 155 K/uL (150-450)
== END ==
LOC: LAB 08:36
PROVIDERS: ATTEND Nurse Practitioner Family
DX: D50.9 Iron deficiency anemia, unspecified (principal); K92.2 Gastrointestinal hemorrhage, unspecified; R71.8 Other abnormality of red blood cells
CPT/HCPCS: 36415; 82040; 82247; 82306; 82310; 82374; 82435; 82565; 82607; 82728; 82746; 82947; 83540; 83550; 83970; 84075; 84132; 84155; 84295; 84450; 84460; 84520; 85025

== ENCOUNTER → 2019-06-15 | Outpatient (CLI) | payer MEDICARE, OTHER ==
[2019-03-02 11:18] VITALS: BMI 21.1
[~2019-06-15] MED LIST changes: +LACT10SO82 PO
[2019-06-15 13:09] LABS: PLATELET COUNT, AUTOMATED 178 K/uL (150-450)
== END ==
LOC: LAB 12:14
PROVIDERS: ATTEND Nurse Practitioner Family
DX: K92.2 Gastrointestinal hemorrhage, unspecified (principal); D50.9 Iron deficiency anemia, unspecified; E61.1 Iron deficiency; R18.8 Other ascites; K74.60 Unspecified cirrhosis of liver; R41.82 Altered mental status, unspecified
CPT/HCPCS: 36415; 82040; 82140; 82247; 82310; 82374; 82435; 82565; 82728; 82947; 83540; 83550; 84075; 84132; 84155; 84295; 84443; 84450; 84460; 84520; 85025